=== PATIENT | female | born 1945 | race Caucasian/White ===

== ENCOUNTER 2017-06-25 11:56 | Outpatient (CLI) | payer MEDICARE, BC, OTHER ==
--- NOTE | 2017-06-25 13:50 | RAD ---
PA AND LATERAL CHEST: INDICATIONS: Shortness of breath. COMPARISON: Prior exam dated 03/18/2014. FINDINGS: Chronic lung changes and mild cardiomegaly are stable. The ACDF plate is unchanged. No air space co nsolidation, pleural effusion, or pneumothorax is evident. Osseous structures are similar. IMPRESSION: No acute cardiopulmonary abnormality when compared to the prior exam. POS: [facility]
== END 2017-06-25 11:57 | disposition home or self-care (01) ==
LOC: RAD 11:56
PROVIDERS: ATTEND Internal Medicine Cardiovascular Disease
DX: R06.02 Shortness of breath (principal)
CPT/HCPCS: 71046

== ENCOUNTER 2017-08-15 12:36 | Outpatient (CLI) | payer MEDICARE, OTHER | END 2017-08-15 12:37 | disposition home or self-care (01) | LOC: BICMRI 12:36 | PROVIDERS: ATTEND Anesthesiology Pain Medicine | DX: M48.02 Spinal stenosis, cervical region (principal); M47.892 Other spondylosis, cervical region; Z98.1 Arthrodesis status | CPT/HCPCS: 72052; 72141 ==

== ENCOUNTER 2017-09-06 12:06 | Day surgery (SDC) | payer MEDICARE, OTHER ==
[2017-09-05 12:52] VITALS: BMI 29.6
[2017-09-06] MEDS ORDERED: Lidocaine 1% PF 5 ML VIAL ONE (13:00)
[2017-09-06] MEDS ORDERED: PROPOFOL 200 MG/20 ML VIAL ONE (13:00)
[2017-09-06] MEDS ORDERED: Fentanyl 100 MCG/2 ML VIAL ONE (14:42)
--- NOTE | 2017-09-06 15:47 | OP ---
DATE OF PROCEDURE: 09/06/2017 TITLE OF PROCEDURE: Esophagogastroduodenoscopy with dilation and esophageal biopsy. PREPROCEDURE DIAGNOSES: 1. Atypical chest pain. 2. Intermittent solid food dysphagia. 3. History of gastroesophageal reflux disease. POSTPROCEDURE DIAGNOSES: 1. Examination to second portion of duodenum. 2. A 2 cm sliding hiatal hernia identified from 38-40 cm from the incisors. 3. No evidence of esophageal stenosis or stricture. 4. Grossly normal appearing stomach and duodenum. 5. Status post 54 Irish Valdes dilation of the esophagus. PROCEDURE IN DETAIL: Written informed consent was obtained. The patient was brought to the endoscop y suite. Total intravenous anesthesia was provided by Lucila Slaughter CRNA. The patient was placed in the left lateral decubitus position. A bite block was inserted into the mouth. A Pentax video diag nostic gastroscope was introduced into the oral cavity and the esophagus was carefully intubated. Th e gastroscope was advanced under direct visualization to the second portion of the duodenum. Endosco pic findings revealed a 2 cm sliding hiatal hernia. A few small erosions were noted at the Z-line an d biopsies were later obtained for histology. The stomach was entered and carefully examined. This included a retroflexed view of the cardia and fundus. It was unremarkable. The duodenum from the bu lb to the second portion was also examined and appeared normal. Given the patient's history of dysph agia, dilation was performed with a 54-Irish Valdes dilators. Little to no resistance was encounte red and the endoscope was introduced post-dilation to inspect for any post-procedure problems and to obtain biopsies. Biopsies were obtained in the lower esophagus at approximately 38 cm. The stomach and esophagus were then decompressed as the endoscope was completely removed from the patient. She w as transferred to the day stay surgery area for post-procedure monitoring. There were no immediate c omplications. RECOMMENDATIONS: 1. Await biopsy results. 2. Ask the patient to call me in 1 week for biopsy results. 3. Resume previous diet and medications. 4. Continue Dexilant, but change the timing of the medication to 60 mg q.a.m. 5. Add famotidine 40 mg p.o. at bedtime for the next 6 weeks. 6. Follow up with me or my PA in the office in six weeks.
== END 2017-09-06 16:00 | disposition home or self-care (01) ==
LOC: SDC 12:06
PROVIDERS: ATTEND Internal Medicine Gastroenterology
PROC: 0DB38ZX Excision of Lower Esophagus, Via Natural or Artificial Opening Endoscopic, Diagnostic (ICD-10-PCS; principal; 2017-09-06)
PROC: 0DJ08ZZ Inspection of Upper Intestinal Tract, Via Natural or Artificial Opening Endoscopic (ICD-10-PCS; 2017-09-06)
PROC: 0D758DZ Dilation of Esophagus with Intraluminal Device, Via Natural or Artificial Opening Endoscopic (ICD-10-PCS; 2017-09-06)
DX: R13.10 Dysphagia, unspecified (principal); R07.89 Other chest pain; K21.9 Gastro-esophageal reflux disease without esophagitis; K44.9 Diaphragmatic hernia without obstruction or gangrene; I25.10 Atherosclerotic heart disease of native coronary artery without angina pectoris; E78.5 Hyperlipidemia, unspecified; E03.9 Hypothyroidism, unspecified; M19.90 Unspecified osteoarthritis, unspecified site; F41.9 Anxiety disorder, unspecified; F32.9 Major depressive disorder, single episode, unspecified; Z79.82 Long term (current) use of aspirin; Z79.02 Long term (current) use of antithrombotics/antiplatelets; Z79.899 Other long term (current) drug therapy; Z88.8 Allergy status to other drugs, medicaments and biological substances; Z88.6 Allergy status to analgesic agent; Z88.5 Allergy status to narcotic agent
CPT/HCPCS: 88305; 88312; 88313; J2001; J2704; J3010

== ENCOUNTER 2017-12-14 13:15 | Inpatient (IN) | payer MEDICARE, OTHER ==
[2017-12-14 13:56] VITALS: BMI 29.9
[2017-12-19] MEDS ORDERED: CEFAZOLIN/Water 2 GM/20 ML SYRINGE ONE (06:20)
[2017-12-19] MEDS ORDERED: Sodium Chloride 0.9% 10 ML ONE (06:24)
[2017-12-19] MEDS ORDERED: Fentanyl 100 MCG/2 ML VIAL ONE ×2 (06:52→09:05)
--- NOTE | 2017-12-19 08:36 | OP ---
DATE OF PROCEDURE: 12/19/2017 SURGEON: Evan Alegre M.D. RN CARDIAC CATH: Linn Hobson PROCEDURE: Removal of hardware C5-C7, exploration of spinal fusion C5-C7, anterior cervical discecto my C4-5, interbody arthrodesis, intravertebral biomechanical device, local morselized autograft, carole neralized bone matrix, anterior titanium instrumentation C4-5. PROCEDURE IN DETAIL: The patient was brought to the operating room and intubated. She was positione d supine, head in modest extension on a gel-filled donut. The previous incision was reopened and the prior plate was identified. This was removed without difficulty. We next placed distraction across C4-5 and using the operating microscope and microdissection techniques, completely removed the intra vertebral disc and decompressed the spinal cord down to the level of the dura at C4-5. Next, the bon y endplates were decorticated for the purpose of arthrodesis and appropriately sized intravertebral b iomechanical PEEK device was brought into the field, filled with demineralized bone matrix, local mor selized autograft, and tapped into place securely at C4-5. The C5-C7 level was explored and found to be solidly fused. We next placed an anterior plate at C4 and C5 using two 14 mm screws at each leve l. The wound was then extensively irrigated, immaculate hemostasis was secured. The wound was close d in anatomic layers.
[2017-12-19] MEDS ORDERED: Meperidine HCl/PF 25 MG/ML VIAL SLOW IVP PRN (09:59)
[2017-12-19] MEDS ORDERED: HYDROmorphone 2 MG/ML VIAL SLOW IVP PRN (09:59)
[2017-12-19] MEDS ORDERED: diphenhydrAMINE 25 MG CAP PO PRN (10:24)
[2017-12-19] MEDS ORDERED: diphenhydrAMINE 50 MG/ML VIAL IVP PRN (10:24)
[2017-12-19] MEDS ORDERED: Bisacodyl 10 MG SUPP PR PRN (10:24)
[2017-12-19] MEDS ORDERED: tiZANidine HCl 4 MG TAB PO PRN (10:24)
[2017-12-19] MEDS ORDERED: Milk Of Magnesia 30 ML UDCUP PO PRN (10:24)
[2017-12-19] MEDS ORDERED: HYDROcodone/Acetaminophen 10/325 mg Tablet PO PRN ×2 (10:24)
[2017-12-19] MEDS ORDERED: Ondansetron HCl/PF 4 MG/2 ML Vial IVP PRN (10:24)
[2017-12-19] MEDS ORDERED: traMADol HCl 50 MG TAB PO PRN ×2 (10:24)
[2017-12-19] MEDS ORDERED: Mag-Al 1200 mg/1200 mg/30 ML UDCUP PO PRN (10:24)
[2017-12-19] MEDS ORDERED: Cyclobenzaprine 10 MG TAB PO PRN (10:29)
[2017-12-19] MEDS ORDERED: Diazepam 5 MG TAB PO PRN (10:30)
[2017-12-19] MEDS: Morphine 4 MG/ML VIAL IV PRN ×2 (10:32→13:51)
[2017-12-19] MEDS ORDERED: Nitroglycerin 0.4 MG TAB (25 Tab Bottle) SL PRN (10:36)
[2017-12-19] MEDS ORDERED: Rosuvastatin 5 MG TAB PO SCH (10:45)
[2017-12-19] MEDS ORDERED: Acetaminophen/Codeine 30-300mg Tablet PO PRN (12:15)
[2017-12-19] MEDS: Acetaminophen/Codeine 30-300mg Tablet PO PRN ×2 (12:27→20:05)
[2017-12-19] MEDS: Sodium Chloride 0.9% 1,000 ML IV SCH (12:46)
[2017-12-19] MEDS: CEFAZOLIN/Water 2 GM/20 ML SYRINGE SLOW IVP SCH ×2 (13:51→22:59)
[2017-12-19] MEDS ORDERED: Ketorolac Tromethamine 30 MG/ML VIAL ONE (14:45)
[2017-12-19] MEDS ORDERED: Dexamethasone 20 MG/5 ML VIAL ONE (14:45)
[2017-12-19] MEDS ORDERED: PROPOFOL 200 MG/20 ML VIAL ONE (14:45)
[2017-12-19] MEDS ORDERED: Ondansetron HCl/PF 4 MG/2 ML Vial ONE (14:45)
[2017-12-19] MEDS ORDERED: Lidocaine 1% PF 5 ML VIAL ONE (14:45)
[2017-12-19] MEDS ORDERED: Glycopyrrolate 0.2 MG/ML 5 ML SYRINGE ONE (14:45)
[2017-12-19] MEDS ORDERED: Calcium Carbonate + Vit D 1 TAB PO SCH (21:00)
[2017-12-19] MEDS ORDERED: Temazepam 15 MG CAP PO SCH (21:00)
[2017-12-19] MEDS ORDERED: Ursodiol 300 MG CAP PO SCH (21:00)
[2017-12-19] MEDS ORDERED: rOPINIRole HCl 2 MG TAB PO SCH (21:00)
[2017-12-19] MEDS ORDERED: Ezetimibe 10 MG TAB PO SCH (21:00)
[2017-12-19] MEDS ORDERED: Gabapentin 300 MG CAP PO SCH (21:00)
[2017-12-19] MEDS ORDERED: Famotidine 20 MG TAB PO SCH (21:00)
--- NOTE | 2017-12-19 23:57 | CON ---
DATE OF CONSULTATION: 12/19/2017 CHIEF COMPLAINT: Cervical myelopathy with difficulty walking and left lower extremity weakness. HISTORY OF PRESENT ILLNESS: The patient is a 72-year-old female who had noted to Dr. Ya months ago that there was progressive difficulty with walking and upper extremity weakness to mainly her hands. This progressed such that an MRI was ordered and it showed severe cervical stenosis at C4-C5. Dr. Alegre was consulted to take care of this and he performed removal of hardware at C5-C6, exploration of spinal fusion C5-C7, anterior cervical diskectomy at C4-C5, interbody arthrodesis, intervertebral biomechanical device , autograft and demineralized bone matrix with anterior titanium instrumentation at C4-C5. Dr. Ya was consulted to take care of any other medical issues. PAST MEDICAL HISTORY: Coronary artery disease that was cleared by Dr. Rashmi Multani, GERD, hypertension, hypothyroidism, dyslipidemia, degenerative joint disease, irritable bowel syndrome, restless leg syndrome, and insomnia. PAST SURGICAL HISTORY: The patient's prior surgeries include previous treatment of cervical stenosis, lumbar disk disease, coronary artery stent placement, hysterectomy. ALLERGIES: OXYCODONE, which makes her jumpy; PROMETHAZINE, which makes her disoriented. SOCIAL HISTORY: She is , denies smoking and drinking. MEDICATIONS: On admission includes a daily aspirin 325 mg, Celebrex 400 mg daily, q.day, Plavix 75 mg daily, Flexeril 10 mg t.i.d. p.r.n. muscle spasms, Dexilant 60 mg daily, diltiazem 180 mg at bedtime, Zetia 10 mg at bedtime, gabapentin 600 mg q.a.m. with 1500 mg at bedtime, occasional hydrocodone barbiturate 30 mg daily, imipramine 10 mg at bedtime, Imdur 30 mg q.a.m., levothyroxine 125 mcg daily, Linzess 145 mcg daily, ropinirole 2 mg one to two tabs at bedtime, temazepam 15 mg at bedtime, Actigall 300 mg p.o. q.p.m. with Crestor 5 mg at bedtime. PHYSICAL EXAMINATION: VITAL SIGNS: Blood pressure 137-175 systolic, diastolic 72-75. Temperature 97.7, pulse rate 74, O2 sat at 94% on room air with respirations at 20. She weighs 164 pounds. GENERAL: This is a well-developed, well-nourished, elderly, female, alert, oriented, and cooperative. HEENT: Normocephalic and atraumatic. Pupils equal, round, and reactive to light with arcus senilis bilaterally. TMs, nares, pharynx are clear. NECK: With bandage in place at the base on the right side with already noted. Limited range of motion, but pain free range of motion. No visible swelling or bruising noted. CHEST: Clear to auscultation. HEART: Regular rate and rhythm without murmur. BREAST: Deferred. ABDOMEN: Soft, nontender, without organomegaly. GENITOURINARY: Deferred. EXTREMITIES: Without clubbing, cyanosis, or edema. Muscular wasting noted in the upper extremities with diminished counseling services manager strength. SKIN: Without rashes or lesions. Normal turgor. NEUROLOGIC: Cranial nerves are intact. Sensory exam is grossly intact. Gait and cerebellar function were noted to be normal. Deep tendon reflexes were not tested. ASSESSMENT: 1. Cervical stenosis, postoperative day #1. 2. Hypertension. 3. Hypothyroidism. 4. Hyperlipidemia. 5. History of coronary artery disease status post stent. 6. Gastroesophageal reflux disease. PLAN: Plan will be to follow the patient medically maintaining her hypertensive medication. Her pain control is excellent at this time. We will serially reevaluate her until discharge. SAMD
[2017-12-20] MEDS: Sodium Chloride 0.9% 1,000 ML IV SCH (00:26)
[2017-12-20] MEDS ORDERED: Levothyroxine Sodium 125 MCG TAB PO SCH (06:00)
--- NOTE | 2017-12-20 07:41 | DIS ---
ATTENDING PHYSICIAN: Dr. Evan Alegre DATE OF ADMISSION: 12/18/2017 DATE OF DISCHARGE: 12/20/2017 DISCHARGE SUMMARY: The patient is a 72-year-old female known to us for prior C5-C7 ACDF wh o underwent removal of hardware and extension of cervical fusion to C4-C5. Postoperatively the patie nt has done very well. Her pain is controlled well with p.o. medication, she is tolerating regular d iet, and she is voiding appropriately. She does complain of some mild dysphagia, but this is improve d with Cepacol lozenges and a soft diet. She is not having any airway difficulty. She is ambulatory throughout the department without any difficulty. She is sitting in the bed comfortably in no acute distress. Dressing is dry, incision is soft. She has 5/5 strength throughout. No focal motor weakness, no reflex asymmetry. We will plan to dismiss the patient to home. We will follow up with the patient in 2 weeks. I have discussed home care precautions. Pain management is currently providing her pain medicine prescripti ons. I have added Zanaflex as a muscle relaxer. Please reach out to Neurosurgery for additional que stions or concerns.
[2017-12-20 08:17] VITALS: BP 154/78; TEMP 97.8
[2017-12-20] MEDS ORDERED: Gabapentin 300 MG CAP PO SCH (09:00)
[2017-12-20] MEDS ORDERED: HYDROCODONE PO SCH (09:00)
[2017-12-20] MEDS ORDERED: Ubidecarenone 50 MG CAP PO SCH (09:00)
[2017-12-20] MEDS ORDERED: LINZESS 145 MCG PO SCH (09:00)
== END 2017-12-20 12:18 | disposition home or self-care (01) | DRG 473 ==
LOC: SURG A 12-19 05:56 → SJJU 12-19 09:10 → EDSTATUS 12-19 13:15
PROVIDERS: ADMIT Neurological Surgery; ATTEND Neurological Surgery
PROC: 0RB30ZZ Excision of Cervical Vertebral Disc, Open Approach (ICD-10-PCS; principal; 2017-12-19)
PROC: 0RG10A0 Fusion of Cervical Vertebral Joint with Interbody Fusion Device, Anterior Approach, Anterior Column, Open Approach (ICD-10-PCS; 2017-12-19)
PROC: 0RP10AZ Removal of Interbody Fusion Device from Cervical Vertebral Joint, Open Approach (ICD-10-PCS; 2017-12-19)
DX: M47.12 Other spondylosis with myelopathy, cervical region (principal); I25.10 Atherosclerotic heart disease of native coronary artery without angina pectoris; K21.9 Gastro-esophageal reflux disease without esophagitis; I10 Essential (primary) hypertension; E03.9 Hypothyroidism, unspecified; E78.5 Hyperlipidemia, unspecified; G25.81 Restless legs syndrome
CPT/HCPCS: 76001; A4216; C1713; C1776; G8978-GP-CK; G8979-GP-CK; G8980-GP-CK; J0131; J1100; J1885; J2001; J2270; J2405; J2704; J3010; J3490

== ENCOUNTER 2017-12-14 13:29 | Outpatient (CLI) | payer MEDICARE, OTHER ==
[2017-12-14 14:26] LABS: Mean Corpuscular HGB CONC 32.8 g/dL (32.0-36.0); Mean Corpuscular Hemoglobin 28.8 pg (27.0-31.0); Mean Corpuscular Volume 87.8 fL (78.0-98.0); Mean Platelet Volume 5.8 fL (7.4-10.4); Platelet Count 369 thou/uL (130-400); RBC Distribution Width 13.3 % (11.5-14.5); Red Blood Cell (RBC) Count 3.82 mill/uL (4.20-5.40); White Blood Cell (WBC) Count 7.3 thou/uL (4.8-10.8)
[2017-12-14 14:47] LABS: Anion Gap 9 mmol/L (10-20); BUN (Urea Nitrogen) 12 mg/dL (9.8-20.1); Calc. Creatinine Clearance 0 mL/min (70-130); Calcium 9.3 mg/dL (7.8-10.44); Carbon Dioxide 28 mmol/L (23-31); Chloride 107 mmol/L (98-107); Estimated GFR-MDRD 66; Glucose 79 mg/dL (83-110); Potassium 4.1 mmol/L (3.5-5.1); Sodium 140 mmol/L (136-145)
== END 2017-12-14 13:30 | disposition home or self-care (01) ==
LOC: LABBT 13:29
PROVIDERS: ATTEND Neurological Surgery
DX: Z01.818 Encounter for other preprocedural examination (principal); M47.12 Other spondylosis with myelopathy, cervical region
CPT/HCPCS: 80048; 85027; 93005; 93010

== ENCOUNTER 2018-01-01 13:02 | Inpatient (IN) | payer MEDICARE, OTHER ==
[2018-01-01] MEDS ORDERED: Acetaminophen 500 MG TAB ONE (13:26)
[2018-01-01 13:33] LABS: #Basophils 0.1 thou/uL (0.0-0.2); #Lymphocytes 2.1 thou/uL (1.20-3.40); #Monocytes 1.3 thou/uL (0.11-0.59); #Neutrophils 11.2 thou/uL (1.40-6.50); %Basophils 0.7 % (0.0-1.0); %Eosinophils 0.3 % (0.0-10.0); %Lymphocytes 14.3 % (21.0-51.0); %Monocytes 8.5 % (0.0-10.0); %Neutrophils 76.3 % (42.0-75.0); Hemoglobin 10.9 g/dL (12.0-16.0); Mean Corpuscular HGB CONC 33.2 g/dL (32.0-36.0); Mean Corpuscular Hemoglobin 28.7 pg (27.0-31.0); Mean Corpuscular Volume 86.4 fL (78.0-98.0); Mean Platelet Volume 5.6 fL (7.4-10.4); Platelet Count 468 thou/uL (130-400); RBC Distribution Width 13.7 % (11.5-14.5); Red Blood Cell (RBC) Count 3.78 mill/uL (4.20-5.40); White Blood Cell (WBC) Count 14.7 thou/uL (4.8-10.8)
[2018-01-01 13:55] LABS: ALT (SGPT) 19 U/L (8-55); AST (SGOT) 28 U/L (5-34); Alkaline Phosphatase 136 U/L (40-150); Anion Gap 11 mmol/L (10-20); BUN (Urea Nitrogen) 11 mg/dL (9.8-20.1); Bilirubin, Total 0.6 mg/dL (0.2-1.2); Calc. Creatinine Clearance 0 mL/min (70-130); Calcium 9.3 mg/dL (7.8-10.44); Carbon Dioxide 26 mmol/L (23-31); Chloride 102 mmol/L (98-107); Estimated GFR-MDRD 65; Globulin 3.4 g/dL (2.4-3.5); Glucose 113 mg/dL (83-110); Potassium 3.6 mmol/L (3.5-5.1); Protein, Total 7.4 g/dL (6.0-8.3); Sodium 135 mmol/L (136-145)
--- NOTE | 2018-01-01 13:59 | RAD ---
PORTABLE AP CHEST RADIOGRAPH: Date: 01-01-18 History: Chest pain, headache. Comparison: 06-25-17 FINDINGS: There is a parenchymal opacity present at the left lung base which may represent small left pleural e ffusion and atelectasis although pneumonia is a possibility. The right lung is clear. Cardiac silhoue tte is magnified by projection. Pulmonary vasculature is within normal limits. Post-surgical changes in the lower cervical spine are again seen. IMPRESSION: 1. Pleural and parenchymal changes left lung base suggesting a left pleural effusion and atelectasis, but pneumonia at the left lung base is also a possibility. Follow up to complete resolution is recom mended. POS: [facility]
[2018-01-01 14:00] LABS: CKMB 2.2 ng/mL (0-6.6)
[2018-01-01 14:05] LABS: Troponin I 5.457 ng/mL (< 0.028)
[2018-01-01 14:09] LABS: Bilirubin Negative (Negative); Blood, Urine Negative (Negative); Clarity CLEAR (Clear); Glucose, Urine (Dipstick) Negative (Negative); Leukocyte Negative (Negative); Nitrite Negative (Negative); Protein, Urine (Dipstick) Negative (Neg-Trace); Specific Gravity, Urine 1.005 (1.002-1.036); Urobilinogen 0.2 mg/dL (0.2-1.0)
[2018-01-01] MEDS ORDERED: Aspirin 325 MG TAB ONE (14:12)
[2018-01-01] MEDS ORDERED: Nitroglycerin 2% Ointment 1 INCH/1 GM Packet ONE (15:42)
[2018-01-01] MEDS ORDERED: Nitroglycerin 0.4 MG TAB (25 Tab Bottle) ONE (15:42)
[2018-01-01] MEDS ORDERED: Metoprolol Tartrate 5 MG/5 ML VIAL ONE (15:53)
[2018-01-01] MEDS ORDERED: Enoxaparin Sodium 80 MG/0.8 ML SYRINGE ONE ×2 (16:28→16:29)
[2018-01-01] MEDS ORDERED: Metoprolol Tartrate 25 MG TAB PO SCH (16:45)
[2018-01-01 17:03] LABS: INR-International Normal Ratio 1.1; Prothrombin Time 14.2 SEC (12.0-14.7)
[2018-01-01 17:04] LABS: PTT 37.4 SEC (22.9-36.1)
[2018-01-01 17:38] VITALS: BMI 30.2
--- NOTE | 2018-01-01 17:42 | CON ---
DATE OF CONSULT: 01/01/18 HISTORY OF PRESENT ILLNESS: The patient is a 72-year-old woman who presents with fever, chills, and chest discomfort. The patient has a long history of coronary artery disease. She has undergone PTCA and stent placed in the left anterior descending artery. The patient underwent a repeat cardiac cath eterization in 2013, which revealed a patent stent. The patient was scheduled to undergo neck surger y. The patient underwent a preoperative PET scan which revealed no evidence of significant ischemia. The patient has been off her Plavix and aspirin for chronic antiplatelet medication. Yesterday celeste qian, the patient developed fevers and chills. She also noted having midsternal chest discomfort. T his was a persistent discomfort. The patient eventually came to the emergency room for further evalu ation. The patient reports that her chest pain has improved, but still is present. PAST MEDICAL HISTORY: Significant for, 1. Coronary artery disease. 2. Hypertension. 3. Dyslipidemia: PAST SURGICAL HISTORY: Cervical stenosis surgery, hysterectomy, cholecystectomy, aortic scar. ALLERGIES: She is allergic to OXYCODONE, PROMETHAZINE. SOCIAL HISTORY: Nonsmoker. MEDICATIONS: See nursing list. REVIEW OF SYSTEMS: Noticeable for fevers, chills, nonproductive cough. PHYSICAL EXAMINATION: GENERAL: Well-developed woman in mild distress. VITAL SIGNS: Blood pressure 132/70. NECK: Showed no jugular distention. LUNGS: Crackles in both lower bases. HEART: Regular rate and rhythm, normal S1, S2, no murmurs. ABDOMEN: Nondistended. EXTREMITIES: Showed no edema. SKIN: Warm and dry. NEUROLOGIC: Nonfocal. LABORATORY DATA: White blood cell count 14.7, hemoglobin 10.9 by a 32.7, platelets are 468. Sodium was 135, potassium 3.6, chloride 102, bicarbonate 26, BUN 11, creatinine 0.86, glucose 113. CPK MB w as 2.2. Troponin was 5.4. White blood cell count 14.7, hemoglobin 10.9, hematocrit 32.7, platelets are 468. Her EKG revealed normal sinus rhythm with an RSR prime suggestive of right ventricular cond uction delay. Chest x-ray revealed cardiomegaly with a small pleural effusion. IMPRESSION: 1. Sepsis. 2. Non-Q-wave myocardial infarction. 3. Hypertension. 4. Diabetes mellitus. 5. Dyslipidemia. This patient presents with possible sepsis. She has apparently has suffered a small non-Q-wave myoca rdial infarction. The patient has been off her antiplatelet medication for several weeks. From a ca rdiac standpoint, she will be treated with local IV Lopressor, nitroglycerin and aspirin. The patien t will also be treated with Lovenox. We will follow this patient with you through her hospitalizatio n.
[2018-01-01] MEDS ORDERED: Acetaminophen 325 MG TAB PO PRN (18:17)
[2018-01-01] MEDS ORDERED: Ondansetron HCl/PF 4 MG/2 ML Vial SLOW IVP PRN (18:28)
[2018-01-01] MEDS ORDERED: Nitroglycerin 0.4 MG TAB (25 Tab Bottle) SL PRN (18:30)
[2018-01-01] MEDS ORDERED: Prevnar 13-Val Conj/PF 0.5 ML SYRINGE IM ONE (19:00)
[2018-01-01] MEDS: Dextrose 5 %-0.45 % NaCl 1,000 ML IV SCH (19:32)
[2018-01-01 19:59] LABS: Critical Call Chem Troponin I RESULT DECREASING
[2018-01-01] MEDS: rOPINIRole HCl 1 MG TAB PO SCH (20:34)
[2018-01-01] MEDS: Metoprolol Tartrate 25 MG TAB PO SCH (20:34)
[2018-01-01] MEDS: Nitroglycerin 2% Ointment 1 INCH/1 GM Packet TOP SCH (20:34)
[2018-01-01] MEDS: Temazepam 15 MG CAP PO SCH (20:34)
[2018-01-01] MEDS: Piperacillin/Tazobactam 4.5 GM in Sodium Chloride 0.9% 100 ML IVPB SCH (21:18)
[2018-01-01] MEDS: Rosuvastatin 5 MG TAB PO SCH (21:19)
--- NOTE | 2018-01-01 22:09 | HP ---
DATE OF ADMISSION: 01/01/2018 CHIEF COMPLAINT: Non-STEMI, pneumonia, and sepsis. HISTORY OF PRESENT ILLNESS: Patient is a 72-year-old female who 13 days ago underwent removal of frandy dware at C5-C7 with spinal fusion of C5-C7 and anterior titanium instrumentation of C4, C5. The ying ent had an unremarkable postoperative course. She states, however, last night she began to have subs ternal chest pain up to a level of 8 or 9/10. She did not tell anyone until the morning of admission . During this time, she felt short-winded. She denies nausea or radiation of pain. She did have a pain with deep inspiration as well. Her temperature went up to 102.9. Her on realizing this brought her to the emergency room for further evaluation. In the ER, her troponin was noted to be 5 .457. Her white count was noted to be elevated at 14,700 with a left shift and on chest x-ray, there was suggestion of left lower lobe pneumonia. The patient has been seen by Dr. Bradshaw and if her c hest pain becomes intractable, we will probably go to the laboratory assistant; however, currently she is pain fr ee and has been placed in IMCU for further evaluation and continuance of IV antibiotics. PAST MEDICAL HISTORY: Significant for the aforementioned recent neck surgery, coronary artery diseas e, GERD, hypertension, hypothyroidism, dyslipidemia, degenerative joint disease, irritable bowel synd rick, restless leg syndrome, and insomnia. PAST SURGICAL HISTORY: Includes cervical stenosis, lumbar disk disease, coronary artery disease with stent placement, hysterectomy, and then the previously mentioned cervical fusion performed on 2017 at [facility]. ALLERGIES: OXYCODONE and PROMETHAZINE. SOCIAL HISTORY: She is , does not smoke or drink alcoholic beverages. MEDICATIONS ON ADMISSION: Include aspirin 325 daily, Celebrex 400 mg daily, Plavix 75 mg daily, Flex eril 10 mg p.r.n. muscle spasms, Dexilant 60 mg daily, diltiazem 180 mg daily, Zetia 10 mg at bedtime , gabapentin 300 mg in the morning and 600 mg at bedtime, Requip 1 mg at bedtime, Valium 5 mg p.r.n. muscle spasms, Imdur 30 mg 1 p.o. daily, Actigall 300 mg once a day, Tylenol No.3 p.r.n. pain, Synthr oid 125 mcg daily. REVIEW OF SYSTEMS: Constitutional: She reports chills and fever, generalized weakness. Temperature over 102. Eyes, denies blurred vision, discharge, or pain. EENT: Denies sores discharge or pain. Cardiovascular has had chest pain substernally at level of 8/10, it is on the left side of the chest , it did not radiate. She was dyspneic and pain with inspiration. Denies nausea, diaphoresis. Resp iratory: Pain with deep inspiration. Denies cough or dyspnea. GI: Denies nausea, vomiting, diarrh ea. : Denies painful urination, blood in urine, or stool. Musculoskeletal: Has a tender somewha t stiff neck since her surgery, otherwise unremarkable. Skin: No acute rashes or lesions. Neurolog ically: She has a headache; otherwise, has not had any trouble with mentation, paresthesias, anesthe kelsie. PHYSICAL EXAMINATION: VITAL SIGNS: On admission, blood pressure 143/68, pulse 109, respirations 22, temperature night 102. 8 tympanic. Pain 8/10 on arrival. O2 sat 96% on room air. GENERAL: This is a well-developed, well-nourished elderly female, alert, oriented, and cooperative. HEENT: Normocephalic and atraumatic. Pupils equal, round, reactive to light with arcus senilis bila terally. TMs, nares, pharynx are clear. NECK: With bandage in place, clean and dry. LUNGS: Incision appears to be healing well with limited range of motion at this time. Chest with bi basilar rales noted on exam. HEART: Regular rate and rhythm. Breast exam deferred. ABDOMEN: Soft, nontender without organomegaly. GENITOURINARY: Deferred. EXTREMITIES: Without clubbing, cyanosis, or edema. Symmetrical muscular tone development noted. No rmal range of motion present. SKIN: No acute rashes or lesions. NEUROLOGIC: Cranial nerves are intact. Gait and cerebellar function intact. Sensory exam is intact . Mental status is at baseline. SKIN: No acute rashes or lesions. LABORATORY DATA: Lab work on admission, chest x-ray shows a suggestion of left lower lobe infiltrate . WBC 14.7, hemoglobin 10.9, hematocrit 32.7 with 468,000 platelets with a left shift. Sodium 135, potassium 3.6, chloride 102, CO2 of 26, BUN 11, creatinine 0.86 with a GFR of 65. Lactate is 0.9, ca lcium 9.3. Liver functions normal. Troponin I initially 5.457 at 1300 and 1600 did come down to 4.6 . UA is completely unremarkable. PT is 14.2, INR 1.1 with APTT at 37.4. ASSESSMENT: 1. Non-ST elevation myocardial infarction. 2. Bilateral lobe pneumonia. 3. Sepsis. 4. Status post surgical fusion, postoperative day 13. PLAN: Plan will be to continue monitoring cardiac functions on tele. Dr. Bradshaw has been consulte d from a cardiac standpoint, we will continue to follow the patient. Echocardiogram will be ordered. Pain management provided. Continue IV antibiotics and should the patient in depth with intractable pain, then prepared for going to the laboratory assistant. Currently, she is medically stable and doing well an d will be serially reevaluated as well as started back on aspirin and Lovenox.
[2018-01-02] MEDS: Cyclobenzaprine 10 MG TAB PO PRN ×2 (01:01→09:20)
[2018-01-02] MEDS: Piperacillin/Tazobactam 4.5 GM in Sodium Chloride 0.9% 100 ML IVPB SCH ×4 (04:18→21:21)
[2018-01-02 05:40] LABS: #Basophils 0.1 thou/uL (0.0-0.2); #Eosinphils 0.1 thou/uL (0.0-0.7); #Lymphocytes 1.7 thou/uL (1.20-3.40); #Monocytes 0.9 thou/uL (0.11-0.59); #Neutrophils 10.2 thou/uL (1.40-6.50); %Basophils 0.7 % (0.0-1.0); %Eosinophils 0.5 % (0.0-10.0); %Lymphocytes 12.9 % (21.0-51.0); %Monocytes 6.8 % (0.0-10.0); %Neutrophils 79.1 % (42.0-75.0); Mean Corpuscular HGB CONC 33.2 g/dL (32.0-36.0); Mean Corpuscular Hemoglobin 29.3 pg (27.0-31.0); Mean Corpuscular Volume 88.1 fL (78.0-98.0); Mean Platelet Volume 6.1 fL (7.4-10.4); Platelet Count 416 thou/uL (130-400); RBC Distribution Width 13.8 % (11.5-14.5); Red Blood Cell (RBC) Count 3.76 mill/uL (4.20-5.40); White Blood Cell (WBC) Count 12.9 thou/uL (4.8-10.8)
[2018-01-02] MEDS: Levothyroxine Sodium 125 MCG TAB PO SCH (05:47)
[2018-01-02 06:00] LABS: Anion Gap 13 mmol/L (10-20); BUN (Urea Nitrogen) 8 mg/dL (9.8-20.1); Calc. Creatinine Clearance 80 mL/min (70-130); Calcium 9.2 mg/dL (7.8-10.44); Carbon Dioxide 20 mmol/L (23-31); Chloride 108 mmol/L (98-107); Estimated GFR-MDRD 75; Glucose 112 mg/dL (83-110); Potassium 3.3 mmol/L (3.5-5.1); Sodium 138 mmol/L (136-145)
[2018-01-02] MEDS ORDERED: Clopidogrel Bisulfate 75 MG TAB PO SCH (07:01)
[2018-01-02] MEDS ORDERED: Dextrose 5 %-0.45 % NaCl 1,000 ML IV SCH (07:02)
[2018-01-02] MEDS ORDERED: Potassium Chloride 20 MEQ TAB PO SCH ×2 (07:15→17:00)
[2018-01-02] MEDS: Dextrose 5 %-0.45 % NaCl 1,000 ML IV SCH (07:21)
--- NOTE | 2018-01-02 07:23 | PRG ---
DATE OF SERVICE: 01/02/2018 Ms. Blanc feels weak and fatigued this morning. She has central chest pain with a deep breath. She has no anginal chest pain today. The patient reports she has been having high fevers for several days now, 103 fever at home, 103 feve r yesterday in the emergency room with shaking chills. She is having no anginal chest pain. PHYSICAL EXAMINATION: VITAL SIGNS: Blood pressure 165/77, pulse 94. LUNGS: Clear anteriorly. Posteriorly, I hear rales in the left base. CARDIAC: Normal S1, normal S2. ABDOMEN: Soft, nontender. EXTREMITIES: There is no edema. ASSESSMENT: 1. Recent cervical spine surgery 2 weeks ago. 2. Coronary artery disease with previous stent implantation. 3. Recent negative stress test. 4. Elevation in troponin. I suspect this is related to demand ischemia or related to side branch. PLAN: 1. We will start low dose Plavix, may talk to Neurosurgery see if it is okay to resume full dual ant iplatelet drugs. 2. Continue antibiotics. 3. Continue aspirin. 4. Consideration for CT of the chest to further delineate whether she does indeed have pneumonia and if so, to what degree. 5. We will continue to follow with you.
--- NOTE | 2018-01-02 08:07 | RAD ---
PORTABLE CHEST: HISTORY: Chest pain. COMPARISON: Prior day's exam. FINDINGS: Heart size is borderline slightly enlarged with atherosclerotic changes of the aorta. Some persisten t pleural and parenchymal changes in the left lung base which may be slightly improved as compared to the prior exam. Subsegmental atelectasis is seen in the right lower lobe. IMPRESSION: Suggestion that there may be slight improvement to the left-sided pleural changes. Persistent bibasi lar lung changes probably on the basis of atelectasis versus infiltrate. POS: [facility]
[2018-01-02] MEDS ORDERED: Pantoprazole 40 MG VIAL IVP SCH (09:00)
[2018-01-02] MEDS ORDERED: Prevnar 13-Val Conj/PF 0.5 ML SYRINGE IM ONE (09:00)
[2018-01-02] MEDS: Metoprolol Tartrate 25 MG TAB PO SCH ×2 (09:13→21:21)
[2018-01-02] MEDS: Nitroglycerin 2% Ointment 1 INCH/1 GM Packet TOP SCH ×2 (09:14→21:21)
[2018-01-02] MEDS: Clopidogrel Bisulfate 75 MG TAB PO SCH (09:14)
--- NOTE | 2018-01-02 11:00 | CT ---
CT OF CHEST PERFORMED WITHOUT CONTRAST ENHANCEMENT: History: Crackling in both lungs. Shortness of breath. Chest pain. Comparison: Chest x-ray today and previous chest x-ray of 01-01-18. FINDINGS: Heart size appears enlarged. Aorta is normal in caliber. There is some coronary calcification and wha t probably is a stent. No significant mediastinal adenopathy is seen. There are small bilateral pleural effusions which are fairly symmetric. There is some associated biba silar lung changes which are slightly more prominent within the left lower lobe but are probably more on the basis of atelectatic type process. The parenchymal changes are slightly greater in the left b ase. Visualized liver parenchyma shows no focal findings. Right and left adrenal glands are normal. IMPRESSION: Small bilateral pleural effusions with bibasilar lung changes most suggestive of atelectasis. POS: [facility]
[2018-01-02] MEDS: HYDROcodone/Acetaminophen 5/325 mg Tablet PO PRN ×2 (12:03→21:27)
[2018-01-02] MEDS ORDERED: Furosemide 40 MG/4 ML VIAL SLOW IVP SCH (14:00)
--- NOTE | 2018-01-02 15:15 | EKG ---
Test Reason : CHEST PAIN Blood Pressure : / mmHG Vent. Rate : 104 BPM Atrial Rate : 104 BPM P-R Int : 132 ms QRS Dur : 090 ms QT Int : 336 ms P-R-T Axes : 042 082 050 degrees QTc Int : 441 ms Poor data quality, interpretation may be adversely affected Sinus tachycardia RSR' or QR pattern in V1 suggests right ventricular conduction delay Borderline ECG Confirmed by ABDOUL BELLA DO ([id number]), editor magazine BENNIE GIBBS ([id number]) on 01/02/2018 3:14:37 PM Referred By: SIMRAN Confirmed By:ABDOUL BELAL DO
[2018-01-02] MEDS ORDERED: Enoxaparin Sodium 80 MG/0.8 ML SYRINGE SC SCH (17:00)
[2018-01-02] MEDS: Gabapentin 300 MG CAP PO SCH (21:20)
[2018-01-02] MEDS: rOPINIRole HCl 1 MG TAB PO SCH (21:21)
[2018-01-02] MEDS: Rosuvastatin 5 MG TAB PO SCH (21:21)
[2018-01-02] MEDS: Temazepam 15 MG CAP PO SCH (21:21)
[2018-01-03] MEDS: Piperacillin/Tazobactam 4.5 GM in Sodium Chloride 0.9% 100 ML IVPB SCH (03:49)
[2018-01-03] MEDS: Levothyroxine Sodium 125 MCG TAB PO SCH (06:00)
[2018-01-03 07:13] LABS: #Basophils 0.1 thou/uL (0.0-0.2); #Eosinphils 0.2 thou/uL (0.0-0.7); #Lymphocytes 1.6 thou/uL (1.20-3.40); #Monocytes 0.7 thou/uL (0.11-0.59); #Neutrophils 7.6 thou/uL (1.40-6.50); %Basophils 0.6 % (0.0-1.0); %Eosinophils 1.6 % (0.0-10.0); %Lymphocytes 15.5 % (21.0-51.0); %Monocytes 7.1 % (0.0-10.0); %Neutrophils 75.2 % (42.0-75.0); Mean Corpuscular HGB CONC 33.3 g/dL (32.0-36.0); Mean Corpuscular Hemoglobin 29.1 pg (27.0-31.0); Mean Corpuscular Volume 87.5 fL (78.0-98.0); Mean Platelet Volume 5.8 fL (7.4-10.4); Platelet Count 465 thou/uL (130-400); RBC Distribution Width 13.7 % (11.5-14.5); Red Blood Cell (RBC) Count 4.11 mill/uL (4.20-5.40); White Blood Cell (WBC) Count 10.1 thou/uL (4.8-10.8)
[2018-01-03 07:28] LABS: Anion Gap 12 mmol/L (10-20); BUN (Urea Nitrogen) 11 mg/dL (9.8-20.1); Calc. Creatinine Clearance 62 mL/min (70-130); Calcium 9.1 mg/dL (7.8-10.44); Carbon Dioxide 21 mmol/L (23-31); Chloride 109 mmol/L (98-107); Estimated GFR-MDRD 59; Glucose 107 mg/dL (83-110); Sodium 139 mmol/L (136-145)
[2018-01-03 07:35] LABS: Potassium 2.7 mmol/L (3.5-5.1)
[2018-01-03] MEDS: Amoxicillin/Potassium Clav 500 MG TAB PO SCH ×2 (08:43→21:17)
[2018-01-03] MEDS: Potassium Chloride 20 MEQ TAB PO SCH ×2 (08:44→21:18)
[2018-01-03] MEDS: Clopidogrel Bisulfate 75 MG TAB PO SCH (08:46)
[2018-01-03] MEDS: Cyclobenzaprine 10 MG TAB PO PRN ×3 (08:46→22:30)
[2018-01-03] MEDS: Gabapentin 400 MG CAP PO SCH (08:46)
[2018-01-03] MEDS: Metoprolol Tartrate 25 MG TAB PO SCH ×2 (08:47→21:18)
[2018-01-03] MEDS: Nitroglycerin 2% Ointment 1 INCH/1 GM Packet TOP SCH ×2 (08:47→22:16)
[2018-01-03] MEDS: TRAMADOL ER 300 MG PO SCH (09:12)
[2018-01-03] MEDS ORDERED: Communication Order-Pharmacy FS SCH (09:15)
[2018-01-03] MEDS ORDERED: Sodium Chloride 0.9% 1,000 ML IV SCH (09:15)
--- NOTE | 2018-01-03 09:25 | PRG ---
DATE OF SERVICE: 01/03/2018 SUBJECTIVE: Ms. Blanc is feeling much better today. She had 8-liter diuresis yesterday with 40 mg o f Lasix. She is sitting up in the chair, now breathing easily. PHYSICAL EXAMINATION: VITAL SIGNS: Her blood pressure is 119/56, pulse 78. LUNGS: Still a few rales at the base on the left side. CARDIAC: Normal S1, normal S2. There is no murmur, rub or gallop. ABDOMEN: Soft, nontender. EXTREMITIES: Only mild edema. IMAGING DATA: Echocardiogram showed hypokinesis of the distal anterior wall. ASSESSMENT: 1. Recent surgery. 2. Recent fever, resolving seems to be pulmonary in origin. The fever had now has resolved actually , probably had pneumonia. 3. Episode of congestive heart failure, diastolic, by definition with ejection fraction over 50%, bu t she has a wall motion abnormality. 4. Previous stent implantation. PLAN: 1. One more dose of Lasix. 2. Proceed to cardiac catheterization tomorrow. I discussed risks of stroke, heart attack, IODINE a llergy, loss of blood supply to leg or kidney, stent thrombosis, stent restenosis. She understands a nd wishes to proceed. 3. Replete potassium.
[2018-01-03] MEDS ORDERED: Furosemide 40 MG/4 ML VIAL SLOW IVP SCH (09:45)
[2018-01-03] MEDS ORDERED: Potassium Chloride 20 MEQ TAB PO SCH (12:00)
[2018-01-03] MEDS: HYDROcodone/Acetaminophen 5/325 mg Tablet PO PRN (15:37)
[2018-01-03] MEDS: Gabapentin 300 MG CAP PO SCH (21:18)
[2018-01-03] MEDS: Rosuvastatin 5 MG TAB PO SCH (21:18)
[2018-01-03] MEDS: rOPINIRole HCl 1 MG TAB PO SCH (22:16)
[2018-01-03] MEDS: Temazepam 15 MG CAP PO SCH (22:17)
[2018-01-04] MEDS: Levothyroxine Sodium 125 MCG TAB PO SCH (05:29)
[2018-01-04] MEDS: Metoprolol Tartrate 25 MG TAB PO SCH (05:30)
[2018-01-04] MEDS: Gabapentin 400 MG CAP PO SCH (05:30)
[2018-01-04] MEDS: Clopidogrel Bisulfate 75 MG TAB PO SCH (05:30)
[2018-01-04] MEDS ORDERED: Sodium Chloride 0.9% 1,000 ML IV SCH ×2 (06:00→07:59)
[2018-01-04 06:21] LABS: Anion Gap 11 mmol/L (10-20); BUN (Urea Nitrogen) 23 mg/dL (9.8-20.1); Calc. Creatinine Clearance 60 mL/min (70-130); Carbon Dioxide 24 mmol/L (23-31); Chloride 110 mmol/L (98-107); Estimated GFR-MDRD 57; Glucose 142 mg/dL (83-110); Potassium 3.4 mmol/L (3.5-5.1); Sodium 142 mmol/L (136-145)
[2018-01-04] MEDS ORDERED: Lidocaine 1% (PF) 30 ML VIAL ONE (06:40)
[2018-01-04] MEDS ORDERED: Midazolam HCl 2 mg/2 ml Vial ONE (07:23)
[2018-01-04] MEDS ORDERED: Fentanyl 100 MCG/2 ML VIAL ONE (07:23)
[2018-01-04] MEDS ORDERED: Sodium Chloride 0.9% 200 ML IV PRN (08:00)
[2018-01-04] MEDS ORDERED: Nitroglycerin 0.4 MG TAB (25 Tab Bottle) SL PRN (08:00)
[2018-01-04] MEDS ORDERED: Iopamidol 370 76% 100 ML VIAL ONE (08:17)
--- NOTE | 2018-01-04 09:24 | PRG ---
DATE OF SERVICE: 01/04/2018 Ms. Blanc underwent cardiac catheterization today. Her coronaries were found to have no obstructive stenosis. The LAD stent is still widely patent with good flow. No flow limiting disease. ASSESSMENT: 1. Recent surgery. 2. Stent widely patent. 3. Non-ST elevation infarction, probably demand ischemia. 4. Fever, resolved, probably pulmonary in origin. 5. Episode of congestive heart failure, diastolic with ejection fraction 55%. PLAN: 1. She will go on Spironolactone 25 mg a day. 2. Metoprolol 25 mg a day. 3. Aspirin. 4. Plavix will be resumed. 5. Avoid LISSY inhibitors at this time being on spironolactone with normal ejection fraction. Risk be nefit ratio does not favor LISSY inhibitors with this situation.
[2018-01-04] MEDS: TRAMADOL ER 300 MG PO SCH (09:54)
[2018-01-04] MEDS: Potassium Chloride 20 MEQ TAB PO SCH (12:05)
[2018-01-04] MEDS: Amoxicillin/Potassium Clav 500 MG TAB PO SCH (12:15)
[2018-01-04 12:52] VITALS: BP 119/58; TEMP 98
[2018-01-04] MEDS: Nitroglycerin 2% Ointment 1 INCH/1 GM Packet TOP SCH (12:56)
[2018-01-05] MEDS ORDERED: Spironolactone 25 MG TAB PO SCH (08:00)
[2018-01-05] MEDS ORDERED: Lisinopril 2.5 MG TAB PO SCH (09:00)
== END 2018-01-04 15:05 | disposition home or self-care (01) | DRG 871 ==
LOC: ERS 13:02 → IMCU/EMU 16:16 → 2NO 22:40
PROVIDERS: ADMIT Specialist; ATTEND Specialist
PROC: 4A023N7 Measurement of Cardiac Sampling and Pressure, Left Heart, Percutaneous Approach (ICD-10-PCS; principal; 2018-01-04)
PROC: B2111ZZ Fluoroscopy of Multiple Coronary Arteries using Low Osmolar Contrast (ICD-10-PCS; 2018-01-04)
PROC: B2151ZZ Fluoroscopy of Left Heart using Low Osmolar Contrast (ICD-10-PCS; 2018-01-04)
DX: A41.9 Sepsis, unspecified organism (principal); J18.9 Pneumonia, unspecified organism; I50.30 Unspecified diastolic (congestive) heart failure; I24.8 Other forms of acute ischemic heart disease; I25.10 Atherosclerotic heart disease of native coronary artery without angina pectoris; K21.9 Gastro-esophageal reflux disease without esophagitis; E03.9 Hypothyroidism, unspecified; E78.5 Hyperlipidemia, unspecified; I11.0 Hypertensive heart disease with heart failure; M19.90 Unspecified osteoarthritis, unspecified site; K58.9 Irritable bowel syndrome, unspecified; G25.81 Restless legs syndrome; G47.00 Insomnia, unspecified; Z79.82 Long term (current) use of aspirin; Z79.02 Long term (current) use of antithrombotics/antiplatelets; Z95.5 Presence of coronary angioplasty implant and graft
CPT/HCPCS: 36415; 71045; 71250; 76942; 80048; 80053; 81003; 82553; 83605; 83880; 84484; 85025; 85610; 85730; 87040; 90471; 90670; 93005; 93306; 93458; 96361; 96365; 96372; 96375; 99152; A4216; C9113; G0009; J1644; J1650; J1940; J1956; J2001; J2250; J2270; J2543; J3010; J7050

== ENCOUNTER 2018-02-19 13:32 | Outpatient (CLI) | payer MEDICARE, OTHER ==
--- NOTE | 2018-02-19 15:05 | RAD ---
CERVICAL SPINE RADIOGRAPHS THREE VIEWS: Date: 02-19-18 Provided Clinical History: Radiculopathy. FINDINGS: Comparison 01-09-18. Post-operative changes as previously described appear stable. Cervical alignment is unchanged. No vahe dence for fracture. Visualized lung apices appear clear. Degenerative changes are again seen. IMPRESSION: Stable exam. POS: [facility]
== END 2018-02-19 13:33 | disposition home or self-care (01) ==
LOC: TBSIIMAG 13:32
PROVIDERS: ATTEND Neurological Surgery
DX: M50.30 Other cervical disc degeneration, unspecified cervical region (principal)
CPT/HCPCS: 72040

== ENCOUNTER 2018-04-05 15:18 | Outpatient (CLI) | payer MEDICARE, OTHER ==
--- NOTE | 2018-04-05 21:05 | MRI ---
MR OF THE CERVICAL SPINE WITHOUT CONTRAST 04/05/18 INDICATION: History of cervical radicular pain extending into the right shoulder for two months. COMPARISON: Prior MR cervical spine dated 08/15/17 and a cervical spinal radiograph dated 02/19/18. FINDINGS: Since the comparison MR examination, there has been interval revision of the ACDF, now spanning C4-C5 with intervertebral cages persisting at the C5-6 and C6-7 levels. There appears to be solid osseous incorporation of the interbody bone graft at C5-6 and C6-7. The spinal alignment appears within faisal l limits. The visualized posterior fossa is unremarkable appearing. At C2-C3, there is advanced facet joint degenerative change, right greater than left with a mild broa d based bulge inducing mild right neural foraminal narrowing. This is stable to the prior exam. At C3-4, there is uncovertebral hypertrophy and facet joint degenerative change and a broad based dis c bulge inducing severe right neural foraminal narrowing. This is stable to the prior exam. At C4-5, there is some residual broad based disc bulge and ligamentum flavum hypertrophy inducing mod erate central canal narrowing with mild cord compression. The uncovertebral hypertrophy is greater on the left inducing stable moderate to severe left neural foraminal narrowing. At C5-6, there is no appreciable central canal or neural foraminal narrowing. At C6-7, there is no appreciable central canal or neural foraminal narrowing. At C7-T1, there is some facet joint degenerative change, greater on the left inducing mild left neura l foraminal narrowing which is stable to the prior exam. IMPRESSION: 1. Interval revision of the ACDF at C4-5 with some residual moderate central canal narrowing wit h mild cord compression at C4-5. No definite cord signal abnormality is evident. 2. Stable multilevel neural foraminal narrowing as detailed above. POS: [facility]
== END 2018-04-05 15:19 | disposition home or self-care (01) ==
LOC: BICMRI 15:18
PROVIDERS: ATTEND Specialist
DX: M54.12 Radiculopathy, cervical region (principal); M48.02 Spinal stenosis, cervical region; M48.03 Spinal stenosis, cervicothoracic region
CPT/HCPCS: 72141

== ENCOUNTER 2018-06-28 07:14 | Day surgery (SDC) | payer MEDICARE, OTHER ==
[2018-06-27 15:52] VITALS: BMI 27.8
--- NOTE | 2018-06-28 10:53 | CT ---
CT CERVICAL MYELOGRAM: Date: 06/28/18 INDICATION: History of cervical radiculopathy. TECHNIQUE: Multiple CT images were obtained of the cervical spine following intrathecal administration of Omnipa que solution. Please see the separately dictated cervical myelogram details concerning injection tech nique. Comparison made with prior MRI of the cervical spine dated 04/05/18. FINDINGS: As seen on the comparison MR examination is an ACDF plate spanning C4 and C5. There is solid osseous incorporation of the interbody bone graft. There is also postprocedural change of a prior anterior in terbody fusion of C5-6 and C6-7. The visualized prevertebral soft tissues and lung apices are clear. No pathologically enlarged lymph nodes are evident. No acute fracture is identified. The occipital C1 and C1-C2 articulations appear within normal limits. There is moderate degenerative change seen at the C1-C2 articulation anteriorly. At the C2-C3 level, there is moderate right and mild left facet joint degenerative change. There is n o appreciable central canal or neural foraminal narrowing. At C3-C4, there is prominent uncovertebral hypertrophy and severe right facet joint degenerative finnegan ges due to severe right neural foraminal narrowing. There is associated mild broad based bulge. At the C4-5 level, there is advanced facet joint degenerative change. There is some residual uncovert ebral hypertrophy. There is moderate to severe right and moderate left neural foraminal narrowing. Th ere is a residual osteophyte complex causing mild central canal narrowing. At C5-6, there is uncovertebral hypertrophy and facet joint degenerative change, but no appreciable c entral canal or neural foraminal narrowing. At C6-7, there is a residual osteophyte complex and facet degenerative changes inducing mild neural f oraminal encroachment, but no appreciable impingement. At C7-T1, there is very slight anterior translation of C7 on T1. There is a mild broad based bulge. T here is advanced disc osteophyte complex and facet degenerative change, greater on the left, inducing severe left neural foraminal narrowing. IMPRESSION: Postprocedural change of an interbody fusion of C4 through C7. There is prominent advanced adjacent s egment degeneration at C7-T1 and C3-4, as detailed above. POS: [facility]
--- NOTE | 2018-06-28 12:05 | RAD ---
CERVICAL SPINE MYELOGRAM INDICATION: Cervical radiculopathy. PROCEDURE: After informed consent had been obtained, the patient was escorted to the interventional suite and pl aced on the procedural table. Yeast Stacker imaging was performed. The patient was placed into a prone posi tion. Skin on the low back was then prepped and draped in the standard sterile fashion and topical a nd regional soft tissue anesthesia was achieved with 1% lidocaine and sodium bicarbonate. Posterior L2-3 interlaminar approach was selected, and a 22 gauge needle was uneventfully advanced into the th ecal sac with clear color CSF. Subsequently, 8 cc Isovue-M 300 was instilled into the thecal sac und er real time fluoroscopy. Appropriate opacification of thecal sac demonstrated with imaging stored f or confirmation. The needle was then removed from the patient. The patient tolerated the procedure well and was then transferred to CT to undergo subsequent myelogram. Reference separate report for f ull details. FLUOROSCOPY DATA: 0.1 minutes intermittent fluoroscopy; 18 mGy *^m2. IMPRESSION: Technically successful cervical myelogram as detailed above. POS: [facility]
[2018-06-28] MEDS ORDERED: Iopamidol-M 300 61% 15 ML VIAL ONE (16:46)
== END 2018-06-28 09:45 | disposition home or self-care (01) ==
LOC: RAD 07:14
PROVIDERS: ATTEND Neurological Surgery
PROC: B01B1ZZ Fluoroscopy of Spinal Cord using Low Osmolar Contrast (ICD-10-PCS; principal; 2018-06-28)
DX: M47.22 Other spondylosis with radiculopathy, cervical region (principal); M48.02 Spinal stenosis, cervical region; Z79.02 Long term (current) use of antithrombotics/antiplatelets; Z79.82 Long term (current) use of aspirin; Z79.899 Other long term (current) drug therapy; Z88.5 Allergy status to narcotic agent; Z88.8 Allergy status to other drugs, medicaments and biological substances; Z98.1 Arthrodesis status
CPT/HCPCS: 62302; 72126

== ENCOUNTER 2018-10-11 16:07 | Outpatient (CLI) | payer MEDICARE, OTHER ==
--- NOTE | 2018-10-11 16:58 | RAD ---
XR Cervical Spine 4 View Min History: [Cervical radiculopathy] Comparison: CT cervical spine June 28, 2018 Findings: ACDF hardware at C4/C5 with discectomy spacers. Sulci discectomy spacers at C5/C6 and C6/C7 with osseous fusion. No acute fracture or malalignment. No significant listhesis with flexion or extension. Moderate degen erative disc space height loss at C3/C4. Visualized ribs are unremarkable. Impression: Degenerative change. No acute abnormality. No significant listhesis with flexion or exten nate.
== END 2018-10-11 16:08 | disposition home or self-care (01) ==
LOC: BICRAD 16:07
PROVIDERS: ATTEND Neurological Surgery
DX: M47.22 Other spondylosis with radiculopathy, cervical region (principal)
CPT/HCPCS: 72050

== ENCOUNTER 2019-05-13 10:34 | Outpatient (CLI) | payer MEDICARE, OTHER ==
--- NOTE | 2019-05-13 12:33 | MRI ---
CERVICAL SPINE MRI WITHOUT CONTRAST: DATE: 05/13/2019. COMPARISON: None. HISTORY: Cervical radiculopathy, cervical spine pain radiating into bilateral shoulders with upper extremity r adiculopathy. TECHNIQUE: Multiplanar, multisequence MR imaging of the cervical spine is provided without contrast. FINDINGS: Multilevel anterior diskectomy and fusion hardware noted within the cervical spine including anterior screw and late fixation at C4-5 and intervertebral disk devices at C4-5, C5-6, and C6-7. The sagitt al STIR imaging demonstrates no focal area of osseous marrow edema. There is moderate degenerative change at the atlantoaxial interspace. C2-3: There is disk space narrowing and disk desiccation. There is facet hypertrophy bilaterally, r ight greater than left. There is mild right-sided neural foraminal stenosis. C3-4: Prominent facet and uncovertebral osteophyte formation on the right with prominent right-sided neural foraminal stenosis. Disk desiccation with mild disk bulge. No significant central canal or left-sided neural foraminal stenosis. C4-5: Detailed assessment is slightly limited secondary to hardware artifact. There is bilateral fa cet and uncovertebral osteophyte formation. No significant central canal stenosis. Probable mild ri ght and moderate left neural foraminal stenosis. C5-6: No significant central canal stenosis. Probable mild left neural foraminal stenosis on the ba sis of mild facet hypertrophy and uncovertebral osteophyte formation. C6-7: Mild bilateral facet and uncovertebral osteophyte formation. No significant central canal ted nosis. Mild bilateral neural foraminal stenosis. C7-T1: There is disk space narrowing and disk desiccation with bilateral facet hypertrophy, left gre ater than right. Moderate/severe left and mild right neural foraminal stenosis. No significant cent ral canal stenosis. No focal area of abnormal signal intensity within the cervical cord. IMPRESSION: Postoperative and degenerative change within the cervical spine as detailed above. POS: [facility]
--- NOTE | 2019-05-13 13:09 | MRI ---
Thoracic spine MRI without contrast: 05/13/2019 COMPARISON: None HISTORY: Radiculopathy TECHNIQUE: Multiplanar multisequence MR imaging of the thoracic spine obtained without contrast FINDINGS: The sagittal STIR imaging demonstrates no focal area of osseous marrow edema. Thoracic vertebral body height and alignment appears normal. Multiple scattered benign hemangiomata a re noted within the thoracic spine. Bilateral facet hypertrophy is noted at T1-2 level with associated significant bilateral neural princess inal stenosis, right greater than left. At T2-3 facet hypertrophy bilaterally causes a mild/moderate degree of bilateral neural foraminal stenosis. No additional areas of significant neura l foraminal stenosis are noted within the thoracic spine. There is no significant central canal stenosis within the thoracic spine. No focal area of abnormal s ignal intensity is identified within the cervical cord. Please note that detailed assessment for central canal stenosis is limited secondary to motion artifact on the axial imaging. There is mild di sc space narrowing with disc desiccation and mild disc bulge T11-12, T12-L1, and L1-2, with probable mild central canal stenosis in these regions. IMPRESSION: Areas of upper thoracic spine neural foraminal stenosis, most prominent on the right at T 1-2.
== END 2019-05-13 10:35 | disposition home or self-care (01) ==
LOC: BICMRI 10:34
PROVIDERS: ATTEND Anesthesiology Pain Medicine
DX: M47.22 Other spondylosis with radiculopathy, cervical region (principal); M48.04 Spinal stenosis, thoracic region; Z98.1 Arthrodesis status
CPT/HCPCS: 72141; 72146

== ENCOUNTER 2019-10-18 12:49 | Outpatient (CLI) | payer MEDICARE, OTHER ==
--- NOTE | 2019-10-18 13:12 | RAD ---
EXAM: Chest PA and lateral: HISTORY: Dyspnea. COMPARISON: 03/18/2014, 01/02/2018 FINDINGS: Heart: Enlarged cardiac silhouette Aorta: Atherosclerosis of the aorta Pulmonary vessels: Normal Costophrenic angles: Costophrenic angles are clear. Lungs: No consolidation or masses. Pneumothorax: No pneumothorax Osseous structures: No osseous abnormalities IMPRESSION: No acute cardiopulmonary process.
== END 2019-10-18 12:50 | disposition home or self-care (01) ==
LOC: SCSRAD 12:49
PROVIDERS: ATTEND Specialist
DX: R06.00 Dyspnea, unspecified (principal); Z11.59 Encounter for screening for other viral diseases
CPT/HCPCS: 71046; 87635; U0003

== ENCOUNTER 2020-04-14 14:23 | Inpatient (IN) | payer MEDICARE, OTHER ==
[2020-04-14] MEDS ORDERED: Ondansetron PF 4 MG/2 ML Vial ONE (17:56)
[2020-04-14] MEDS ORDERED: Morphine 4 MG/ML VIAL ONE ×2 (17:56→22:45)
--- NOTE | 2020-04-14 19:34 | RAD ---
4 VIEWS RIGHT KNEE: Date: 04/14/2020 COMPARISON: None. HISTORY: Injury, trauma, pain. FINDINGS: There is a markedly comminuted distracted acute fracture of the patella with prominent associated sof t tissue swelling. No evidence for dislocation. No additional fracture is seen. IMPRESSION: Severely comminuted and distracted patellar fracture with prominent overlying soft tissue swelling. O rthopedic consultation advised. POS: [facility]
--- NOTE | 2020-04-14 19:36 | RAD ---
RIGHT FOOT THREE VIEWS: 04/14/20 HISTORY: Pain. COMPARISON: None. FINDINGS: Large plantar calcaneal spur. No acute displaced fracture or malalignment although somewhat limited d ue to hyperextension of the metatarsophalangeal joints, claw toes. Lisfranc interval is maintained. IMPRESSION: 1. No acute osseous abnormality. 2. 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 POS: [facility]
--- NOTE | 2020-04-14 19:39 | CT ---
CT OF CERVICAL SPINE PERFORMED WITHOUT CONTRAST ENHANCEMENT: Date: 04/14/2020 HISTORY: Neck injury post fall. FINDINGS: Extensive postop changes are noted. Anterior plate and screws have been placed at the C4-5 level. Bon y fusion changes and disc implants at C5-6 and C6-7. Marked disc narrowing at C7-T1. There are promin ent degenerative facet changes. These facet changes are more right-sided. The facets are in normal al ignment. There is marked right-sided foraminal stenosis at C3-4. Bilateral mild to moderate foraminal stenosis at the C4-5 level. Canal shows a mild degree of stenosis at C6-7. There is no CT evidence for fractu re. The lung apices are clear. IMPRESSION: No CT evidence of fracture of the cervical spine. POS: [facility]
--- NOTE | 2020-04-14 19:42 | CT ---
CT OF BRAIN 04/14/20 HISTORY: Head injury. Status post fall. The ventricular and cisternal system shows some generalized atrophy fairly age appropriate. There is no signs of intracerebral hemorrhage or extra-axial fluid collections. Mastoid air cells and visualiz ed sinuses are clear. IMPRESSION: No acute intracranial abnormality. POS: [facility]
[2020-04-14 20:03] LABS: ALT (SGPT) 31 U/L (8-55); AST (SGOT) 37 U/L (5-34); Albumin 4.2 g/dL (3.4-4.8); Alkaline Phosphatase 106 U/L (40-110); Anion Gap 18 mmol/L (10-20); BUN (Urea Nitrogen) 13 mg/dL (9.8-20.1); Bilirubin, Total 0.5 mg/dL (0.2-1.2); Calc. Creatinine Clearance 0 mL/min (70-130); Calcium 9.2 mg/dL (7.8-10.44); Carbon Dioxide 22 mmol/L (23-31); Chloride 104 mmol/L (98-107); Globulin 3.2 g/dL (2.4-3.5); Glucose 89 mg/dL (83-110); Potassium 4.4 mmol/L (3.5-5.1); Protein, Total 7.4 g/dL (6.0-8.3); Sodium 140 mmol/L (136-145)
[2020-04-14] MEDS ORDERED: rOPINIRole HCl 2 MG TAB PO PRN (20:37)
[2020-04-14] MEDS ORDERED: Calcium Carbonate 600 MG + Vit D TAB PO SCH (22:15)
[2020-04-14] MEDS ORDERED: Famotidine 20 MG TAB PO SCH (22:15)
[2020-04-14] MEDS ORDERED: Gabapentin 300 MG CAP PO SCH (22:15)
[2020-04-14] MEDS: Ezetimibe 10 MG TAB PO SCH (22:48)
[2020-04-14] MEDS: Morphine 2 MG/ML VIAL SLOW IVP PRN (22:53)
[2020-04-14 23:08] LABS: #Basophils 0.1 thou/uL (0.0-0.2); #Eosinphils 0.4 thou/uL (0.0-0.7); #Lymphocytes 1.8 thou/uL (1.20-3.40); #Monocytes 0.5 thou/uL (0.11-0.59); #Neutrophils 4.3 thou/uL (1.40-6.50); %Basophils 1.3 % (0.0-1.0); %Lymphocytes 24.8 % (21.0-51.0); %Monocytes 6.9 % (0.0-10.0); Hemoglobin 12.5 g/dL (12.0-16.0); Mean Corpuscular Volume 94.2 fL (78.0-98.0); Mean Platelet Volume 6.6 fL (7.4-10.4); Platelet Count 280 thou/uL (130-400); RBC Distribution Width 12.1 % (11.5-14.5); Red Blood Cell (RBC) Count 4.03 mill/uL (4.20-5.40); White Blood Cell (WBC) Count 7.1 thou/uL (4.8-10.8)
[2020-04-14] MEDS ORDERED: traMADol HCl 50 MG TAB ONE (23:24)
[2020-04-14] MEDS ORDERED: Acetaminophen 500 MG TAB ONE (23:25)
[2020-04-14] MEDS: Acetaminophen 500 MG TAB PO SCH (23:27)
[2020-04-14] MEDS: Ibuprofen 200 MG TAB PO SCH (23:28)
[2020-04-14] MEDS: traMADol HCl 50 MG TAB PO SCH (23:28)
--- NOTE | 2020-04-15 00:20 | HP ---
PRIMARY CARE PROVIDER: Dr. Ya. CORRECTION WORKER: Dr. Multani. CONSULTING ORTHOPEDIST: Dr. Cutler. HISTORY OF PRESENT ILLNESS: Ms. Blanc is a 74-year-old female with a past medical history of multiple back surgeries, coronary artery disease, hep B virus many years ago, and MN, presenting to the emergency department today with a chief complaint of right leg pain status post fall. The patient was at the [facility] and states that she was trying to move something with her leg, resulting in a fall landing straight on her knee. She has a patellar fracture. Dr. Cutler has been consulted and recommends admission for operative repair in the morning. The patient is in a straight knee immobilizer. She has no other injuries. She is on Plavix and aspirin, last dose I believe today, and she struck her head without any loss of function. She has no neuro deficits. However, CT C-spine and head have been obtained. The patient has been given morphine. Pain is generally controlled. She is GCS 15. Awake and alert. is at the bedside. I evaluated the patient in the emergency department. Of note, [facility] is down and most of the orders are written orders that are faxed that are not yet in the computer including medications and laboratory test for tomorrow. We will need to do further orders once [employer] is back up. REVIEW OF SYSTEMS: The patient has no nausea, no vomiting, no syncope, no chest pain, no shortness of air, no headache, no neck pain, and no dysuria. She has not been ill. She has not traveled. She has not had any recent weight loss. She does endorse chronic back pain and neuropathy. PAST MEDICAL HISTORY: Significant for; 1. Coronary artery disease. 2. MN. 3. HPV. 4. Double pneumonia. PAST SURGICAL HISTORY: Going to be a C4-C5 fusion, L2-L3 decompression, cardiac stent in 2004, left shoulder surgeries both in 2008 and 2009. She has had a synovial cyst removed back in 2003. She has had a cholecystectomy many years ago, S1-L5 fusion. She has had a hysterectomy. SOCIAL HISTORY: Significant for no tobacco use lifelong. 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 She is and retired. MEDICATIONS: 1. Synthroid 100 mcg daily. 2. Neurontin up to 3000 mg daily per her. 3. Spironolactone 25 mg daily. 4. Imdur 15 mg daily. 5. Linzess daily. 6. Aspirin 81 mg. 7. Celebrex 400 mg. 8. Crestor 5 mg daily. 9. Toprol 25 mg. 10. Protonix 40 mg. 11. Torsemide 10 mg. 12. Plavix 75 mg. 13. CoQ10 at 200 mg. 14. Zetia 10 mg. 15. Requip 2 mg. 16. Imipramine 10 mg. 17. Belbuca 150 mcg as needed. 18. Temazepam 15 mg. ALLERGIES: TO PHENERGAN AND OXYCONTIN. FAMILY HISTORY: Unknown. PHYSICAL EXAMINATION: VITAL SIGNS: Temperature is 97.6, blood pressure 149/80, heart rate is 71, respiratory rate is 18. She is saturating 98% on room air. GENERAL: This is a 74-year-old female, sitting up, nontoxic, in no acute distress. HEENT: Normocephalic, atraumatic. NECK: Trachea is midline. RESPIRATORY: Equal rise and fall. Bilateral breath sounds. Clear to auscultation in upper and lower lobes bilaterally. CARDIOVASCULAR: Regular rate and rhythm. No murmur. ABDOMEN: Soft and nontender. PELVIS: Stable. MUSCULOSKELETAL: She does have sensation in all of her extremities. She is able to move all of her extremities. She does have an effusion about the right knee, some bruising noted. Otherwise, no joint pain. NEUROLOGIC: Alert and oriented to person, place, time, and event. GCS is 15. PSYCH: Normal mood and affect. SKIN: Warm and dry. DIAGNOSTIC DATA: X-ray showing a right knee effusion. LABORATORY DATA: Please see the computer, most of this has not resulted as we are in a downtime right now. CT C-spine and CT head are pending. ASSESSMENT: 1. Acute traumatic pain. 2. Right femoral fracture. 3. Mechanical fall. 4. History of coronary artery disease and multiple back surgeries as well as chronic pain. PLAN: 1. We will admit the patient to surgery mendez. 2. Trauma bowel regimen can be initiated. 3. Nonweightbearing to right lower extremity. 4. Dr. Cutler of Orthopedics has been consulted, I appreciate recommendations. 5. Pain control this evening with multimodal . Of note, the patient is on buprenorphine as needed for pain. She only takes this sometimes and we need to change our pain management regimen if she is not well controlled, currently she is. 6. We will repeat labs in the morning. 7. N.p.o. after midnight. 8. We will hold DVT chemical prophylaxis at this time. 9. Full code. 10. Access of peripheral IV. 11. Disposition is surgery mendez. 12. Activity is going to be rest. 13. I have updated the patient and the patient's family at bedside, coordinating care with the emergency department staff. This plan can be updated as needed. Of note, again, [facility] is down. Please see paper chart for orders. If they are not in [facility], we will update [facility] when we are available. Job ID: [id number]
[2020-04-15] MEDS ORDERED: Acetaminophen 500 MG TAB ONE ×2 (04:11→10:26)
[2020-04-15] MEDS ORDERED: traMADol HCl 50 MG TAB ONE ×2 (04:11→10:26)
[2020-04-15] MEDS: Acetaminophen 500 MG TAB PO SCH ×4 (04:29→22:46)
[2020-04-15] MEDS: traMADol HCl 50 MG TAB PO SCH ×4 (04:29→23:19)
[2020-04-15 06:36] LABS: SARS-CoV-2 MS2 Positive; SARS-CoV-2 N Gene Negative; SARS-CoV-2 S Gene Negative; SARS-CoV-2 by NAA Not Detected (NotDetected); SARS-CoV-2 orf1ab Negative
[2020-04-15 07:01] LABS: #Basophils 0.1 thou/uL (0.0-0.2); #Eosinphils 0.6 thou/uL (0.0-0.7); #Lymphocytes 2.2 thou/uL (1.20-3.40); #Monocytes 0.7 thou/uL (0.11-0.59); #Neutrophils 3.1 thou/uL (1.40-6.50); %Basophils 1.6 % (0.0-1.0); %Eosinophils 8.6 % (0.0-10.0); %Lymphocytes 33.2 % (21.0-51.0); %Monocytes 10.4 % (0.0-10.0); %Neutrophils 46.2 % (42.0-75.0); Hemoglobin 11.5 g/dL (12.0-16.0); Mean Corpuscular HGB CONC 33.2 g/dL (32.0-36.0); Mean Corpuscular Hemoglobin 31.5 pg (27.0-31.0); Mean Platelet Volume 6.8 fL (7.4-10.4); Platelet Count 239 thou/uL (130-400); RBC Distribution Width 12.3 % (11.5-14.5); Red Blood Cell (RBC) Count 3.64 mill/uL (4.20-5.40); White Blood Cell (WBC) Count 6.6 thou/uL (4.8-10.8)
[2020-04-15 07:39] LABS: Anion Gap 14 mmol/L (10-20); BUN (Urea Nitrogen) 20 mg/dL (9.8-20.1); Calc. Creatinine Clearance 0 mL/min (70-130); Calcium 8.7 mg/dL (7.8-10.44); Carbon Dioxide 25 mmol/L (23-31); Chloride 106 mmol/L (98-107); Glucose 85 mg/dL (83-110); Magnesium 2.1 mg/dL (1.6-2.6); Phosphorus 5.6 mg/dL (2.3-4.7); Potassium 4.7 mmol/L (3.5-5.1); Sodium 140 mmol/L (136-145)
[2020-04-15] MEDS ORDERED: Ibuprofen 200 MG TAB ONE (08:14)
[2020-04-15] MEDS: Ibuprofen 200 MG TAB PO SCH ×3 (08:23→23:18)
[2020-04-15] MEDS: Levothyroxine Sodium 100 MCG TAB PO SCH (08:24)
[2020-04-15] MEDS ORDERED: CEFAZOLIN 2 GM in Premix Bag 1 BAG IVPB SCH (08:45)
--- NOTE | 2020-04-15 09:22 | CON ---
DATE OF CONSULTATION: PRIMARY CARE PHYSICIAN: Dr. Ya. REASON FOR CONSULTATION: We were asked by ER and Trauma to see patient. HISTORY OF PRESENT ILLNESS: Patient is a 74-year-old female who fell at the [facility] yesterday. She was getting up from the wash station and tried to move a stepstool away with the right leg where her leg gave out. She feels like she twisted her ankle, landed on her knee, and hit her right side of the face on the wash sink. She did not lose consciousness. She did not have any dizziness or shortness of breath upon falling. She remembers everything about the fall. After the fall she was unable to stand up and had significant right knee pain, some right facial pain and a little bit of ankle pain. She has had an extensive amount of back surgeries, 4 to be exact and has weakness in both lower extremities, right greater than left. She has a little bit of occasional neurological problems in the left leg, but good sensations in the right. She has also had some cervical surgeries in the past. Currently, she is resting on a gurney in room 20 in the ER. Since our hospital is at capacity there are no beds for her currently. She understands the need for surgery. She has had an extensive surgery history and understands risks and benefits of undergoing surgery. She had a stent in 2004. She sees Dr. Multani for heart. She is on Plavix and aspirin, last dose being Sunday night she believes. She is unable to raise that right lower extremity, I am unsure if it is because of the fracture or pain, but she did give it a fairly good effort. No numbness and tingling in that right lower extremity. PAST MEDICAL HISTORY: Coronary artery disease, [place], HPV, pneumonia, chronic regional pain syndrome, some neuropathy. PAST SURGICAL HISTORY: Cervical, lumbar x4, cardiac stent, left shoulder x2, cholecystectomy, hysterectomy. SOCIAL HISTORY: Resides at home with her , very independent and active. No nicotine or drug products, but has wine a few times a week. ALLERGIES: PHENERGAN, OXYCONTIN, CAUSES MORE OF A NEUROLOGICAL ISSUE. FAMILY HISTORY: For this particular event is noncontributory. CURRENT MEDICATIONS: 1. Synthroid. 2. Neurontin. 3. Spironolactone. 4. Imdur. 5. Linzess. 6. Aspirin. 7. Celebrex. 8. Crestor. 9. Toprol. 10. Protonix. 11. Torsemide. 12. Plavix. 13. CoQ10. 14. Zetia. 15. Requip. 16. Imipramine. 17. Belbuca. 18. Temazepam p.r.n. REVIEW OF SYSTEMS: Denies any chest pain, shortness of breath. Does have a little bit of right facial pain due to the fall. Right knee pain, ankle on the right is a little sore. History of chronic regional pain syndrome in the right arm that flares up occasionally. Otherwise, rest of review of systems is negative. Doctors that she sees, Dr. Casas, Dr. Tavarez, Dr. Multani, Dr. Mcarthur. PHYSICAL EXAMINATION: GENERAL: Well-nourished, well-developed female, alert, very pleasant. Speech clear. No acute distress, resting on a gurney in room 20 due to hospital being at capacity. HEENT: Scalp is atraumatic. Face symmetric, but she does have some bruising to the right side of her face that is mildly tender to palpation. CT of the head and face was negative. Her smile is symmetric. Tongue midline. NECK: Supple. Trachea midline. CT of the neck was negative. EXTREMITIES: Upper extremities; equal size, shape, symmetry, normal bulk and tone. Movements and sensations are intact. Respirations 16, no acute distress. Pelvis nonpainful with rocking. Lower extremities; also equal size, shape, symmetry, normal bulk and tone with the exception of the right lower extremity the area around the knee is starting to bruise and is quite swollen, but skin is pliable. She is unable to do a straight leg raise. I am not sure if it is from pain or the fracture of the patella, but her right quad is firing fine. The rest of lower extremities, DP and PT pulses are intact. She is able to feel both feet and move them without any difficulty. IMAGING STUDIES: X-rays; positive patella fracture. LABORATORY DATA: COVID negative yesterday. Rest of labs are within normal limits. She is mildly anemic. Her creatinine is 1.35. ASSESSMENT: Fall with ensuing right patella fracture. PLAN: I spoke with the patient. She understands risks and benefits of surgery. She has undergone multiple surgeries, but we did discuss bleeding, infection, scarring, bad things that can happen with surgery, stroke, heart attack, blood clots. She understands all of this. I told her we will get her on the surgery schedule this afternoon. Trauma has cleared her. Plan to do an ORIF of the right patella. We will get antibiotics ordered. I would like her to go up to the floor. Unfortunately, the hospital is filled so she may have to wait in the ER and I explained this to the patient, which she understands. If she should need any of her other specialist while in the hospital we will get those consulted. Trauma will do med management. Her last dose of Plavix was Sunday night as far as she remembers. Patient is happy with the plan and amenable to go forth with surgery. Job ID: [id number] [facility]
[2020-04-15] MEDS ORDERED: Morphine 2 MG/ML VIAL ONE (10:34)
[2020-04-15] MEDS: Ubidecarenone 50 MG CAP PO SCH (10:45)
[2020-04-15] MEDS: Rosuvastatin 5 MG TAB PO SCH (10:45)
[2020-04-15] MEDS: Gabapentin 300 MG CAP PO SCH ×3 (10:45→23:19)
[2020-04-15] MEDS: Morphine 2 MG/ML VIAL SLOW IVP PRN (11:00)
[2020-04-15] MEDS ORDERED: Lidocaine 1% PF 5 ML VIAL ONE (11:18)
[2020-04-15] MEDS ORDERED: Calcium Chloride 1 GM/10 ML Abboject SYRINGE ONE (11:18)
[2020-04-15] MEDS ORDERED: ePHEDrine 50 MG/ML VIAL ONE (11:18)
[2020-04-15] MEDS ORDERED: PROPOFOL 200 MG/20 ML VIAL ONE (11:18)
[2020-04-15] MEDS ORDERED: PHENYLEPHRINE-NS 100 MCG/ML 10 ML SYRINGE ONE (11:18)
[2020-04-15] MEDS ORDERED: Fentanyl 100 MCG/2 ML VIAL ONE ×4 (16:05→19:38)
[2020-04-15] MEDS ORDERED: Bupivacaine PF 0.5% 30 ML VIAL ONE (17:07)
--- NOTE | 2020-04-15 19:27 | RAD ---
RIGHT KNEE TWO VIEWS: 04/15/20 HISTORY: Postop. Two C-arm views show open reduction internal fixation of a patellar fracture with screws and wire. IMPRESSION: Postop changes of the patella. POS: [facility]
[2020-04-15] MEDS ORDERED: HYDROmorphone 0.5 MG/0.5 ML SYRINGE ONE (19:45)
[2020-04-15] MEDS: Calcium Carbonate 600 MG + Vit D TAB PO SCH (22:40)
[2020-04-15] MEDS: Famotidine 20 MG TAB PO SCH (22:40)
[2020-04-15] MEDS: Ezetimibe 10 MG TAB PO SCH (22:40)
--- NOTE | 2020-04-15 22:52 | OP ---
DATE OF PROCEDURE: 04/15/2020 PROCEDURES PERFORMED: Open reduction and internal fixation of right patella fracture. PREOPERATIVE DIAGNOSIS: Displaced right patella fracture. POSTOPERATIVE DIAGNOSIS: Displaced right patella fracture. COMPLICATIONS: None. ESTIMATED BLOOD LOSS: 100 mL. SENIOR RISK ANALYST: Ebenezer Acosta PA-C IMPLANTS: Two Synthes 4.5 mm cannulated screws were utilized with cerclage wire and Mersilene tape. INDICATIONS: Ms. Blanc is a 74-year-old female, who has fallen and fractured her patella. She has a comminuted and displaced fracture. She has been indicated for open reduction and internal fixation to restore anatomic alignment of the patella and promote healing. Risks have been reviewed in detail. She has elected to proceed with the operation. DESCRIPTION OF PROCEDURE: Ms. Blanc was identified in the preoperative holding area. Her correct extremity was marked. She was carried to the operating room. She was positioned supine. General anesthesia was induced. A multidisciplinary time-out was performed. The right lower extremity was prepped and draped in a sterile fashion. We began the procedure with anterior incision over the knee. We dissected down through the subcutaneous tissues to the fascia, which was opened exposing the highly comminuted and displaced patella fracture. We irrigated the joint and cleared the bony edges. There was approximately six fragments. These were reduced using multiple reduction clamps and K-wires holding the patella back into anatomic reduced position. At this point, we passed two K-wires through the patella from inferior to superior. We then overdrilled the K-wires and measured the length. Next, we placed two 34 mm length 4.5 mm screws. At this point, we passed a wire through these and brought this over the top of the patella in a tension band technique. This was tightened appropriately. At this point, we then oversewed the retinaculum with Ethibond suture medially and laterally to support our repair. Finally, we passed a Mersilene tape in a cerclage fashion around the patella and tied this securely. We thoroughly irrigated. We then closed with 0 Vicryl suture, 2-0 Vicryl suture, and shala for the skin. A sterile dressing was applied. The patient was taken to the recovery room in good condition. The seed laboratory assistant surgeon was responsible for positioning the patient, preparing the injured extremity, applying the tourniquet, and assisting in preparation for surgery. The seed laboratory assistant was instrumental in reducing the injured limb by applying traction and reduction maneuvers as well as holding retractors and reduction tools. The seed laboratory assistant also was instrumental in assisting in exposure throughout the operation using appropriate retractors. The seed laboratory assistant participated in closure of the operative site as well as dressing application and splint application. Job ID: [id number]
[2020-04-16] MEDS: CEFAZOLIN 2 GM in Premix Bag 1 BAG IVPB SCH ×2 (00:11→09:05)
[2020-04-16 01:43] VITALS: BMI 32.8
[2020-04-16] MEDS: traMADol HCl 50 MG TAB PO SCH ×3 (05:02→15:01)
[2020-04-16] MEDS: Ibuprofen 200 MG TAB PO SCH ×3 (05:02→21:00)
[2020-04-16] MEDS: Levothyroxine Sodium 100 MCG TAB PO SCH (05:02)
[2020-04-16] MEDS: Acetaminophen 500 MG TAB PO SCH ×4 (05:03→21:00)
[2020-04-16] MEDS ORDERED: Aspirin 81 mg Enteric Coated Tablet PO SCH (09:00)
[2020-04-16] MEDS: Ubidecarenone 50 MG CAP PO SCH (09:06)
[2020-04-16] MEDS: Gabapentin 300 MG CAP PO SCH ×3 (09:07→20:59)
[2020-04-16] MEDS: Rosuvastatin 5 MG TAB PO SCH (09:08)
[2020-04-16] MEDS: Clopidogrel Bisulfate 75 MG TAB PO SCH (09:39)
[2020-04-16] MEDS ORDERED: traMADol HCl 50 MG TAB PO PRN (16:27)
--- NOTE | 2020-04-16 19:29 | PRG ---
DATE OF SERVICE: 04/16/2020 SUBJECTIVE: The patient is currently on the surgical floor. She was admitted after a ground level fall when she sustained a right patella fracture which she underwent open reduction and internal fixation of yesterday. She tolerated that procedure well. Overnight, she had no issues. Today, she is requesting that her home pain medications be restarted as she does have chronic pain and has a very specific pain regimen that works for her. We have agreed to resume all of her home medications. The patient is currently awaiting placement. She is working with physical and occupational therapy. She is tolerating a diet. PHYSICAL EXAMINATION: VITAL SIGNS: Temperature 97.7, heart rate 67, blood pressure 123/69, respirations 16, oxygen saturation 97% on room air. GENERAL: The patient is resting comfortably in bed. She is awake, alert, conversant, appropriate. [place] Coma Scale is 15. HEENT: Unremarkable. LUNGS: Clear to auscultation with good inspiratory and expiratory effort. HEART: Regular rate and rhythm. ABDOMEN: Soft, flat, and nontender with active bowel sounds. EXTREMITIES: Neurovascularly intact x4. The patient has a clean, dry, and intact dressing and knee immobilizer on right lower extremity. LABORATORY DATA: There are no labs or radiographs to review this morning. ASSESSMENT: 1. Status post ground level fall. 2. Postop day 1, status post open reduction and internal fixation of right patella fracture. 3. History of chronic pain syndrome. PLAN: Plan will be to continue encouraging physical and occupational therapy and await placement decision. Again, we have resumed her home pain regimen. Job ID: [id number]
[2020-04-16] MEDS: Ezetimibe 10 MG TAB PO SCH (20:59)
[2020-04-16] MEDS: Ursodiol 300 MG CAP PO SCH (20:59)
[2020-04-16] MEDS: Famotidine 20 MG TAB PO SCH (21:00)
[2020-04-16] MEDS: Calcium Carbonate 600 MG + Vit D TAB PO SCH (21:00)
[2020-04-17] MEDS: Ibuprofen 200 MG TAB PO SCH ×3 (05:06→21:32)
[2020-04-17] MEDS: Levothyroxine Sodium 100 MCG TAB PO SCH (05:06)
[2020-04-17] MEDS: Acetaminophen 500 MG TAB PO SCH ×4 (05:07→21:31)
[2020-04-17 05:25] LABS: #Basophils 0.1 thou/uL (0.0-0.2); #Eosinphils 0.5 thou/uL (0.0-0.7); #Lymphocytes 1.9 thou/uL (1.20-3.40); #Monocytes 1.1 thou/uL (0.11-0.59); #Neutrophils 6.5 thou/uL (1.40-6.50); %Basophils 0.7 % (0.0-1.0); %Eosinophils 5.1 % (0.0-10.0); %Monocytes 10.5 % (0.0-10.0); %Neutrophils 64.7 % (42.0-75.0); Mean Corpuscular HGB CONC 31.8 g/dL (32.0-36.0); Mean Corpuscular Hemoglobin 30.2 pg (27.0-31.0); Mean Corpuscular Volume 94.9 fL (78.0-98.0); Mean Platelet Volume 6.5 fL (7.4-10.4); Platelet Count 251 thou/uL (130-400); RBC Distribution Width 12.1 % (11.5-14.5)
[2020-04-17 06:00] LABS: Anion Gap 13 mmol/L (10-20); BUN (Urea Nitrogen) 21 mg/dL (9.8-20.1); Calc. Creatinine Clearance 62 mL/min (70-130); Calcium 8.6 mg/dL (7.8-10.44); Carbon Dioxide 24 mmol/L (23-31); Chloride 105 mmol/L (98-107); Glucose 112 mg/dL (83-110); Magnesium 1.9 mg/dL (1.6-2.6); Phosphorus 3.5 mg/dL (2.3-4.7); Potassium 4.2 mmol/L (3.5-5.1); Sodium 138 mmol/L (136-145)
[2020-04-17] MEDS: Rosuvastatin 5 MG TAB PO SCH (08:35)
[2020-04-17] MEDS: Gabapentin 300 MG CAP PO SCH ×3 (08:35→21:31)
[2020-04-17] MEDS: Ubidecarenone 50 MG CAP PO SCH (08:35)
[2020-04-17] MEDS: Clopidogrel Bisulfate 75 MG TAB PO SCH (08:35)
[2020-04-17] MEDS: Aspirin Chewable 81 MG TAB PO SCH (08:35)
[2020-04-17] MEDS: Ursodiol 300 MG CAP PO SCH ×2 (08:36→21:33)
[2020-04-17] MEDS: Spironolactone 25 MG TAB PO SCH (08:36)
[2020-04-17] MEDS ORDERED: Linaclotide [Linzess] 145 MCG Capsule PO SCH (09:00)
[2020-04-17] MEDS: Buprenorphine Hcl [Belbuca] 150 MCG Film SL PRN (10:19)
--- NOTE | 2020-04-17 18:48 | PRG ---
DATE OF SERVICE: 04/17/2020 SUBJECTIVE: The patient remains on the surgical floor. She is status post a ground level fall in which she sustained a right patella fracture which she underwent open reduction and internal fixation of same. She began working with physical and occupational therapy and progressed very well to the point that she and her feel that she is more than likely want to go home as opposed to inpatient rehab at this time. She reports that she is planning to help at home, though we did offer home health and home PT. Should she desire, discharge home. She said she would think about that and see how therapy went again today. Otherwise, her pain is controlled she is tolerating a diet. We resumed her home medicines, specifically her home pain medicines which she states has helped tremendously. PHYSICAL EXAMINATION: VITAL SIGNS: Temperature is 98.2, heart rate 81, blood pressure 154/78, respirations 16, oxygen saturation is 96% on room air. GENERAL: The patient is resting comfortably in bed. She is just finished with therapy. NEUROLOGIC: She is awake, alert, appropriate. [place] Coma Scale is 15. HEENT: Unremarkable. LUNGS: Clear to auscultation bilaterally. HEART: Regular rate and rhythm. ABDOMEN: Soft, nontender with active bowel sounds. EXTREMITIES: Neurovascularly intact x4. Knee immobilizer is clean, dry, and intact. LABORATORY FINDINGS: White blood cell count 10.0, hemoglobin 10.0, hematocrit 31.3, platelets 251. Sodium 138, potassium 4.2, chloride 105, CO2 of 24, BUN 21, creatinine 1.06, glucose 112, magnesium 1.9, phosphorus 3.5. IMAGING: There are no radiographs to review this morning. ASSESSMENT: 1. Status post ground level fall. 2. Postop day 2 status post open reduction and internal fixation of right patella fracture. 3. History of chronic pain syndrome. PLAN: Plan will be to continue physical and occupational therapy and re-evaluate tomorrow and make decision on placement. Job ID: [id number]
[2020-04-17] MEDS: Famotidine 20 MG TAB PO SCH (21:32)
[2020-04-17] MEDS: Ezetimibe 10 MG TAB PO SCH (21:32)
[2020-04-17] MEDS: Calcium Carbonate 600 MG + Vit D TAB PO SCH (21:33)
[2020-04-18] MEDS: Buprenorphine Hcl [Belbuca] 150 MCG Film SL PRN ×2 (00:27→14:56)
[2020-04-18] MEDS: Acetaminophen 500 MG TAB PO SCH ×2 (04:56→09:30)
[2020-04-18] MEDS: Levothyroxine Sodium 100 MCG TAB PO SCH (05:00)
[2020-04-18] MEDS: Ibuprofen 200 MG TAB PO SCH ×2 (05:00→14:43)
[2020-04-18] MEDS: Rosuvastatin 5 MG TAB PO SCH (08:07)
[2020-04-18] MEDS: Ubidecarenone 50 MG CAP PO SCH (08:08)
[2020-04-18] MEDS: Spironolactone 25 MG TAB PO SCH (08:08)
[2020-04-18] MEDS: Aspirin Chewable 81 MG TAB PO SCH (08:08)
[2020-04-18] MEDS: Clopidogrel Bisulfate 75 MG TAB PO SCH (08:08)
[2020-04-18] MEDS: Ursodiol 300 MG CAP PO SCH (08:09)
[2020-04-18] MEDS: Gabapentin 300 MG CAP PO SCH ×2 (08:09→14:44)
[2020-04-18 12:40] VITALS: TEMP 98.2
[2020-04-18 14:59] VITALS: BP 129/74
--- NOTE | 2020-04-20 05:16 | PQF ---
CLINICAL DOCUMENTATION CLARIFICATION FORM: Dear : Martín Herzog Date / Time: 04/20/20514 Please exercise your independent, professional judgment in responding to the clarification form. Clinical indicators are provided on the bottom of this form for your review Based on your clinical judgment, can you please clarify the diagnosis of right femoral fracture? Please check appropriate box(es): [ X ] Traumatic Right Femoral Fracture [ ] No femoral fracture [ ] Other diagnosis, please specify: [ ] Unable to determine Physician Signature: Date/Time: For continuity of documentation, please document condition throughout progress notes and discharge summary. Thank You. To be completed by CDI/Coding staff for physician review: Present Clinical Indicators - Signs / Symptoms / Labs Results and Location in Medical Record [X] BP 120/99, Pulse 71, Resp 16, Temp 98.0 Vital signs 04/14 [X] Complaint of right leg pain s/p fall H&P p1 04/14 Georgie QURESHI-C [X] trying to move something with her leg, resulting in a fall landing straight on her knee H&P p1 04/14 Georgie QURESHI-C [X] Acute traumatic pain H&P p3 04/14 Georgie PA-C [X] Right femoral fracture H&P p3 04/14 Georgie QURESHI-C Present Risk Factors Results and Location in Medical Record [X] 74 year-old Female H&P p1 04/14 Georgie PA-C [X] Right Patellar fx s/p ORIF Operative report Dr Cutler 04/15 [X] s/p fall H&P p1 04/14 Georgie QURESHI-C Present Treatments Results and Location in Medical Record [X] Tramadol Hcl 100 mg oral MAR 04/14 [X] IV Morphine Sulfate 4 mg JUL 16 [X] Tylenol 400 mg JUL 16 [X] Ortho consult Consult Dr Acosta 04/15 [X] Nonweight bearing to right lower extremity HP 04/14 [facility] Signature: Kala Garcia Phone #: [phone] Date/Time: 04/20/202043 This is a permanent part of the Medical Record [facility]
--- NOTE | 2020-05-07 12:02 | EKG ---
Test Reason : Blood Pressure : / mmHG Vent. Rate : 060 BPM Atrial Rate : 060 BPM P-R Int : 186 ms QRS Dur : 074 ms QT Int : 420 ms P-R-T Axes : 055 017 041 degrees QTc Int : 420 ms Normal sinus rhythm Possible Left atrial enlargement Borderline ECG No previous ECGs available Confirmed by DR. Neel ALFORD ([id number]) on 05/07/2020 12:02:06 PM Referred By: JEREMY Confirmed By:DR. Neel ALFORD
== END 2020-04-18 16:10 | disposition home health service (06) | DRG 515 ==
LOC: ERS 14:23 → ERHOLD 18:45 → 2NO 18:52 → ERHOLD 18:52 → SURG B 04-15 13:02
PROVIDERS: ADMIT Surgery; ATTEND Surgery
PROC: 0QSD04Z Reposition Right Patella with Internal Fixation Device, Open Approach (ICD-10-PCS; principal; 2020-04-15)
DX: S82.041A Displaced comminuted fracture of right patella, initial encounter for closed fracture (principal); S72.91XA Unspecified fracture of right femur, initial encounter for closed fracture; Z20.828 Contact with and (suspected) exposure to other viral communicable diseases; W17.89XA Other fall from one level to another, initial encounter; I25.10 Atherosclerotic heart disease of native coronary artery without angina pectoris; G89.4 Chronic pain syndrome; I25.2 Old myocardial infarction; Z86.19 Personal history of other infectious and parasitic diseases; Z98.1 Arthrodesis status; Z90.49 Acquired absence of other specified parts of digestive tract; Y92.89 Other specified places as the place of occurrence of the external cause; Z79.890 Hormone replacement therapy; Z79.82 Long term (current) use of aspirin; Z79.02 Long term (current) use of antithrombotics/antiplatelets; Z88.8 Allergy status to other drugs, medicaments and biological substances
CPT/HCPCS: 36415; 70450; 72125; 76000; 80048; 80053; 83735; 84100; 85025; 86850; 86900; 86901; 87635; 93005; 93010; 96374; 96375; C1713; C1769; J0690; J1170; J2270; J2405; J2704; J3010; J3490; S0020; U0003

== ENCOUNTER 2020-05-20 15:49 | Outpatient (CLI) | payer MEDICARE, OTHER ==
--- NOTE | 2020-05-20 16:09 | RAD ---
Chest 2 views HISTORY: Dyspnea. COMPARISON: 10/18/2019. FINDINGS: Cardiac silhouette and pulmonary vasculature are unremarkable. Mediastinum is midline. Postoperative changes of the cervical spine and lumbar spine. Pectus excavatum apparent on the lateral view. No confluent airspace consolidation, pneumothorax, or pleural fluid. IMPRESSION : No acute abnormalities are demonstrated.
--- NOTE | 2020-05-20 16:51 | MRI ---
MRI lumbar spine noncontrast HISTORY: Low back pain. Prior surgery. FINDINGS: Vertebral body heights and alignment are maintained. Bilateral pedicle screws are in place at the L2-3-4-5 levels. No edema or findings of complication. Degenerative changes lower thoracic spine without significant spinal cord compression evident. T12-L1: Disc space narrowing. Posterior disc bulge and circumferential degenerative changes. Moderate stenosis of the central canal and each neural foramen. L1-2: Discogenic endplate changes. Disc space narrowing and minimal degenerative retrolisthesis. Post erior disc bulge and circumferential degenerative changes. Very severe stenosis of the central canal. Severe stenosis of each neural foramen. L2-3: Postoperative changes. Loss of disc space and minimal degenerative retrolisthesis. Partial limi brooke growth. Thecal sac is patent. Neural foramina favored to be patent. L3-4: Postoperative changes. Osteophytosis of the facets. Central canal and neural foramina are paten t. L4-5: Postoperative changes. Partial obscuration of the neural foramina. No significant stenoses appa rent. L5-S1: Osteophytosis of the facets. Central canal and neural foramina are patent. IMPRESSION : Severe central canal and foraminal stenoses at the L1-2 level, immediately above the multi level surg ical fixation. Prominent but less severe stenoses at the T12-L1 level.
== END 2020-05-20 15:50 | disposition home or self-care (01) ==
LOC: BICRAD 15:49
PROVIDERS: ATTEND Specialist
DX: M48.061 Spinal stenosis, lumbar region without neurogenic claudication (principal); R06.00 Dyspnea, unspecified; M48.05 Spinal stenosis, thoracolumbar region
CPT/HCPCS: 71046; 72148

== ENCOUNTER 2020-06-29 10:04 | Outpatient (CLI) | payer MEDICARE, OTHER ==
--- NOTE | 2020-06-29 11:36 | MRI ---
MRI Cervical spine without contrast: HISTORY: Cervical radiculopathy. Patient complains of neck pain and bilateral hand numbness. History of prior cervical spine surgery. COMPARISON: 05/13/2019 FINDINGS: Postoperative changes cervical spine are again noted with metallic susceptibility artifact seen anter iorly at the C4-5 level related to anterior plate and screws. Intradiscal implants are again seen at the C4-5, C5-6, and C6-7 levels with evidence of fusion from C4 to C7. Findings are unchanged comp ared to prior exam. No significant cord signal abnormality. Paravertebral soft tissues have a normal appearance and normal signal intensity. C1-2:Degenerative changes are again present at this level with prominent pannus formation at the venecia culation of the odontoid with anterior arch of C1 which results in effacement of the ventral subarachnoid space. Findings are unchanged from prior exam. C2-3: Right-sided uncinate process hypertrophy and prominent right facet hypertrophic changes. Left n eural foramen and central spinal canal are patent, but there is mild right-sided neural foraminal narrowing. C3-4: Mild disc osteophyte complex with prominent right-sided uncinate process hypertrophy. Facet hyp ertrophic changes are present and greater on the right. There is mild effacement of the right anterolateral aspect of the ventral subarachnoid space. Left neural foramen is patent, but there is m oderate to severe right-sided neural foraminal narrowing. This is similar to prior exam. C4-5: Posterior osteophyte formation as well as facet hypertrophic changes are noted. Facet hypertrop hic changes much greater on the right. Findings result in effacement of the ventral subarachnoid space with slight flattening the anterior aspect of the spinal cord. Moderate left sided neural princess inal narrowing is present. Right foramen is patent. C5-6: Posterior osteophyte formation is present resulting in slight effacement of the ventral subarac hnoid space. Mild left-sided neural foraminal narrowing is present. Right neural foramen is patent. C6-7: Posterior osteophyte formation is present resulting in effacement of the ventral subarachnoid s pace. Mild facet hypertrophic changes are present. Mild bilateral neural foraminal narrowing is seen greater on the left. C7-T1: Trace anterolisthesis of C7 on T1. Disc osteophyte complex is again seen with facet degenerati ve changes with findings greater on the left. Findings again result in moderate to severe left and mild right-sided neural foraminal narrowing. Mild central canal narrowing is present. IMPRESSION: Postoperative and degenerative changes of the cervical spine not significantly progressed when compar ed to prior exam.
--- NOTE | 2020-06-29 11:50 | RAD ---
Cervical spine 5 views: 06/29/2020 COMPARISON: None HISTORY: Cervical radiculopathy, neck pain with bilateral hand numbness, prior cervical spine fusion FINDINGS: Open-mouth odontoid view demonstrates a normal-appearing dens and C1-2 articulation. There is anterior discectomy and fusion hardware present at C4-5. Intervertebral disc devices are present at C5-6 and C6-7. The neutral lateral imaging demonstrates multilevel mid and upper cervical spine facet hypertrophy. A t the C7-T1 level there is anterolisthesis measuring up to approximately 4 mm. On the flexion imaging the anterolisthesis at the C7-T1 level measures approximately 5 mm. This anter olisthesis on extension imaging measures approximately 4 mm. No additional areas of anterolisthesis or retrolisthesis are appreciated. No prevertebral soft tissue swelling. IMPRESSION: Postoperative and degenerative change within the cervical spine as detailed above.
== END 2020-06-29 10:05 | disposition home or self-care (01) ==
LOC: SCSMRI 10:04
PROVIDERS: ATTEND Neurological Surgery
DX: M47.22 Other spondylosis with radiculopathy, cervical region (principal); Z98.890 Other specified postprocedural states
CPT/HCPCS: 72050; 72141

== ENCOUNTER 2020-08-12 09:54 | Outpatient (CLI) | payer MEDICARE, OTHER ==
[2020-08-12 11:19] LABS: Mean Corpuscular HGB CONC 31.2 g/dL (32.0-36.0); Mean Corpuscular Hemoglobin 29.6 pg (27.0-33.0); Mean Corpuscular Volume 94.9 fl (81.6-98.3); Mean Platelet Volume 8.8 fl (7.4-10.4); Platelet Count 314 10x3/uL (150-450); RBC Distribution Width 12.9 % (11.5-14.5); Red Blood Cell (RBC) Count 3.72 10x6/uL (3.90-5.03); White Blood Cell (WBC) Count 9.1 10x3/uL (3.5-10.5)
[2020-08-12 11:36] LABS: Anion Gap 9 mmol/L (10-20); BUN (Urea Nitrogen) 23 mg/dL (9.8-20.1); Calc. Creatinine Clearance 0 mL/min (70-130); Calcium 8.8 mg/dL (7.8-10.44); Carbon Dioxide 29 mmol/L (23-31); Chloride 105 mmol/L (98-107); Glucose 123 mg/dL (83-110); Sodium 138 mmol/L (136-145)
[2020-08-12 17:45] LABS: SARS-CoV-2 PCR by NAA Not Detected (NotDetected)
== END 2020-08-12 09:55 | disposition home or self-care (01) ==
LOC: LABBT 09:54
PROVIDERS: ATTEND Neurological Surgery
DX: Z01.818 Encounter for other preprocedural examination (principal); M48.062 Spinal stenosis, lumbar region with neurogenic claudication; Z20.822 Contact with and (suspected) exposure to COVID-19
CPT/HCPCS: 80048; 85027; 93005; U0003; U0005; 87635; 93010

== ENCOUNTER 2020-08-16 08:34 | Observation (INO) | payer MEDICARE, OTHER ==
[2020-08-16] MEDS ORDERED: Midazolam HCl 2 mg/2 ml Vial ONE (11:28)
[2020-08-16] MEDS ORDERED: Fentanyl 100 MCG/2 ML VIAL ONE ×2 (11:28→15:31)
[2020-08-16] MEDS ORDERED: PHENYLEPHRINE-NS 100 MCG/ML 10 ML SYRINGE ONE (11:57)
[2020-08-16] MEDS ORDERED: Lidocaine 1% PF 5 ML VIAL ONE (11:57)
[2020-08-16] MEDS ORDERED: Rocuronium Bromide 10 MG/ML (10ML VIAL) ONE (11:57)
[2020-08-16] MEDS ORDERED: ePHEDrine Sulfate 50 MG/10 ML VIAL ONE (11:57)
[2020-08-16] MEDS ORDERED: Ondansetron PF 4 MG/2 ML Vial ONE (11:57)
[2020-08-16] MEDS ORDERED: PROPOFOL 200 MG/20 ML VIAL ONE (11:57)
[2020-08-16] MEDS ORDERED: Glycopyrrolate 0.2 MG/ML 5 ML SYRINGE ONE (11:57)
[2020-08-16] MEDS ORDERED: Dexamethasone 20 MG/5 ML VIAL ONE (11:57)
[2020-08-16] MEDS ORDERED: Ondansetron HCl/PF 4 MG/2 ML Vial IVP PRN (12:47)
[2020-08-16] MEDS ORDERED: Promethazine HCl 25 MG/ML VIAL SLOW IVP PRN (12:47)
[2020-08-16] MEDS ORDERED: HYDROmorphone 2 MG/ML VIAL SLOW IVP PRN (12:47)
[2020-08-16] MEDS ORDERED: HYDROmorphone 2 MG/ML VIAL ONE (13:36)
[2020-08-16] MEDS ORDERED: diphenhydrAMINE 50 MG/ML VIAL IVP PRN (14:15)
[2020-08-16] MEDS ORDERED: Mag-Al 1200 mg/1200 mg/30 ML UDCUP PO PRN (14:15)
[2020-08-16] MEDS ORDERED: Milk Of Magnesia 30 ML UDCUP PO PRN (14:15)
[2020-08-16] MEDS ORDERED: Morphine 4 MG/ML VIAL SLOW IVP PRN (14:15)
[2020-08-16] MEDS ORDERED: HYDROcodone/Acetaminophen 10/325 mg Tablet PO PRN ×2 (14:15)
[2020-08-16] MEDS ORDERED: diphenhydrAMINE 25 MG CAP PO PRN (14:15)
[2020-08-16] MEDS ORDERED: tiZANidine HCl 4 MG TAB PO PRN (14:15)
[2020-08-16] MEDS ORDERED: Morphine 2 MG/ML VIAL SLOW IVP PRN (14:15)
[2020-08-16] MEDS ORDERED: Ondansetron PF 4 MG/2 ML Vial IM PRN (14:16)
[2020-08-16] MEDS ORDERED: Nitroglycerin 0.4 MG TAB (25 Tab Bottle) SL PRN (14:41)
[2020-08-16] MEDS: CEFAZOLIN 2 GM in Premix Bag 1 BAG IVPB SCH (17:33)
[2020-08-16] MEDS ORDERED: Ondansetron PF 4 MG/2 ML Vial SLOW IVP PRN (18:54)
[2020-08-16 20:48] VITALS: BMI 31.6
[2020-08-16] MEDS ORDERED: Calcium Carbonate 600 MG + Vit D TAB PO SCH (21:00)
[2020-08-16] MEDS ORDERED: Gabapentin 400 MG CAP PO SCH (21:00)
[2020-08-16] MEDS ORDERED: Rosuvastatin 5 MG TAB PO SCH (21:00)
[2020-08-16] MEDS ORDERED: Ezetimibe 10 MG TAB PO SCH (21:00)
[2020-08-16] MEDS ORDERED: rOPINIRole HCl 2 MG TAB PO SCH (21:00)
[2020-08-16] MEDS: Ursodiol 300 MG CAP PO SCH (21:10)
[2020-08-16] MEDS: Famotidine 20 MG TAB PO SCH (21:14)
[2020-08-16] MEDS: BELBUCA 150 MCG SL SCH (22:06)
[2020-08-16] MEDS: Sodium Chloride 0.9% 1,000 ML IV SCH (23:16)
[2020-08-17] MEDS: CEFAZOLIN 2 GM in Premix Bag 1 BAG IVPB SCH ×2 (01:45→10:34)
[2020-08-17] MEDS ORDERED: Levothyroxine Sodium 100 MCG TAB PO SCH (06:00)
[2020-08-17] MEDS: Sodium Chloride 0.9% 1,000 ML IV SCH (06:49)
[2020-08-17 07:42] VITALS: BP 116/60; TEMP 98.3
[2020-08-17] MEDS ORDERED: Spironolactone 25 MG TAB PO SCH (08:00)
[2020-08-17] MEDS: Famotidine 20 MG TAB PO SCH (08:31)
[2020-08-17] MEDS ORDERED: Torsemide 10 MG TAB PO SCH (09:00)
[2020-08-17] MEDS ORDERED: Gabapentin 300 MG CAP PO SCH (09:00)
[2020-08-17] MEDS: BELBUCA 150 MCG SL SCH (10:22)
[2020-08-17] MEDS: Ursodiol 300 MG CAP PO SCH (10:23)
== END 2020-08-17 11:00 | disposition home or self-care (01) ==
LOC: SDC 08:34 → SURG B 14:18
PROVIDERS: ADMIT Neurological Surgery; ATTEND Neurological Surgery
PROC: 01N80ZZ Release Thoracic Nerve, Open Approach (ICD-10-PCS; principal; 2020-08-16)
DX: M48.04 Spinal stenosis, thoracic region (principal); M48.05 Spinal stenosis, thoracolumbar region; M48.062 Spinal stenosis, lumbar region with neurogenic claudication; M54.16 Radiculopathy, lumbar region; G89.29 Other chronic pain; I25.10 Atherosclerotic heart disease of native coronary artery without angina pectoris; E78.5 Hyperlipidemia, unspecified; K21.9 Gastro-esophageal reflux disease without esophagitis; M19.90 Unspecified osteoarthritis, unspecified site; E03.9 Hypothyroidism, unspecified; Z79.02 Long term (current) use of antithrombotics/antiplatelets; Z79.82 Long term (current) use of aspirin; Z79.899 Other long term (current) drug therapy; Z88.5 Allergy status to narcotic agent; Z88.8 Allergy status to other drugs, medicaments and biological substances; Z95.5 Presence of coronary angioplasty implant and graft; Z98.1 Arthrodesis status
CPT/HCPCS: 63046; 63048; 76000; 96365; 96376; 97139; G0378 ×2; J0690; J1100; J1170; J2250; J2405; J2704; J3010; J3370; J3490

== ENCOUNTER 2020-12-10 14:20 | Outpatient (CLI) | payer MEDICARE, OTHER ==
[2020-12-10 16:12] LABS: Anion Gap 13 mmol/L (10-20); BUN (Urea Nitrogen) 35 mg/dL (9.8-20.1); Calc. Creatinine Clearance 0 mL/min (70-130); Calcium 9.1 mg/dL (7.8-10.44); Carbon Dioxide 26 mmol/L (23-31); Chloride 106 mmol/L (98-107); Glucose 119 mg/dL (83-110); Potassium 5.7 mmol/L (3.5-5.1); Sodium 139 mmol/L (136-145)
[2020-12-10 16:28] LABS: Hemoglobin 9.3 g/dL (12.0-15.5); Mean Corpuscular HGB CONC 30.5 g/dL (32.0-36.0); Mean Corpuscular Hemoglobin 27.1 pg (27.0-33.0); Mean Corpuscular Volume 88.9 fl (81.6-98.3); Mean Platelet Volume 8.8 fl (7.4-10.4); Platelet Count 377 10x3/uL (150-450); RBC Distribution Width 13.9 % (11.5-14.5); Red Blood Cell (RBC) Count 3.43 10x6/uL (3.90-5.03); White Blood Cell (WBC) Count 7.6 10x3/uL (3.5-10.5)
[2020-12-11 19:32] LABS: SARS-CoV-2 PCR by NAA Not Detected (NotDetected)
== END 2020-12-10 14:21 | disposition home or self-care (01) ==
LOC: LABBT 14:20
PROVIDERS: ATTEND Orthopaedic Surgery
DX: Z01.812 Encounter for preprocedural laboratory examination (principal); Z20.822 Contact with and (suspected) exposure to COVID-19
CPT/HCPCS: 80048; 85027; U0003; U0005

== ENCOUNTER 2020-12-13 10:41 | Day surgery (SDC) | payer MEDICARE, OTHER ==
[2020-12-10 13:27] VITALS: BMI 29.2
[2020-12-13] MEDS ORDERED: Fentanyl 100 MCG/2 ML VIAL ONE ×3 (11:28→14:49)
[2020-12-13] MEDS ORDERED: Midazolam HCl 2 mg/2 ml Vial ONE (11:28)
[2020-12-13 12:25] LABS: Potassium 4.8 mmol/L (3.5-5.1)
[2020-12-13] MEDS ORDERED: Dexamethasone 20 MG/5 ML VIAL ONE (12:51)
[2020-12-13] MEDS ORDERED: Ondansetron PF 4 MG/2 ML Vial ONE (12:51)
[2020-12-13] MEDS ORDERED: Lidocaine 1% PF 5 ML VIAL ONE (12:51)
[2020-12-13] MEDS ORDERED: Bupivacaine HCl 0.5%/Epinephrine 1:200,000/PF 30 ml Vial ONE (12:51)
[2020-12-13] MEDS ORDERED: PHENYLEPHRINE-NS 100 MCG/ML 10 ML SYRINGE ONE (12:51)
[2020-12-13] MEDS ORDERED: Succinylcholine 200 MG/10 ml SYRINGE FS ONE (12:51)
[2020-12-13] MEDS ORDERED: PROPOFOL 200 MG/20 ML VIAL ONE (12:51)
[2020-12-13] MEDS ORDERED: Morphine 2 MG/ML VIAL ONE (15:39)
[2020-12-13] MEDS ORDERED: HYDROcodone/Acetaminophen 5/325 mg Tablet ONE (15:39)
== END 2020-12-13 16:55 | disposition home or self-care (01) ==
LOC: SDC 10:41
PROVIDERS: ATTEND Orthopaedic Surgery
PROC: 0QPD04Z Removal of Internal Fixation Device from Right Patella, Open Approach (ICD-10-PCS; principal; 2020-12-13)
PROC: 0LQQ0ZZ Repair Right Knee Tendon, Open Approach (ICD-10-PCS; 2020-12-13)
DX: M67.863 Other specified disorders of tendon, right knee (principal); T84.84XA Pain due to internal orthopedic prosthetic devices, implants and grafts, initial encounter; K21.9 Gastro-esophageal reflux disease without esophagitis; M19.90 Unspecified osteoarthritis, unspecified site; M54.16 Radiculopathy, lumbar region; I25.10 Atherosclerotic heart disease of native coronary artery without angina pectoris; E78.5 Hyperlipidemia, unspecified; E03.9 Hypothyroidism, unspecified; Z79.82 Long term (current) use of aspirin; Z79.899 Other long term (current) drug therapy; Z88.8 Allergy status to other drugs, medicaments and biological substances; Z95.5 Presence of coronary angioplasty implant and graft; Z98.1 Arthrodesis status
CPT/HCPCS: 20680; 27380; 73560; 76000; 84132; J2270; J0690; J1100; J2250; J2405; J2704; J3010; L1830

== ENCOUNTER 2020-12-15 09:18 | Inpatient (IN) | payer MEDICARE, OTHER ==
[2020-12-15 11:49] LABS: #Basophils 0.1 thou/uL (0.0-0.2); #Eosinphils 0.6 thou/uL (0.0-0.7); #Lymphocytes 3.1 thou/uL (1.20-3.40); #Monocytes 1.1 thou/uL (0.11-0.59); #Neutrophils 6.1 thou/uL (1.40-6.50); %Basophils 0.9 % (0.0-1.0); %Eosinophils 5.2 % (0.0-10.0); %Lymphocytes 28.2 % (21.0-51.0); %Neutrophils 55.8 % (42.0-75.0); Hemoglobin 9.5 g/dL (12.0-16.0); Mean Corpuscular HGB CONC 31.7 g/dL (32.0-36.0); Mean Corpuscular Hemoglobin 27.9 pg (27.0-31.0); Mean Platelet Volume 6.3 fL (7.4-10.4); Platelet Count 372 thou/uL (130-400); RBC Distribution Width 12.6 % (11.5-14.5); Red Blood Cell (RBC) Count 3.42 mill/uL (4.20-5.40); White Blood Cell (WBC) Count 10.9 thou/uL (4.8-10.8)
[2020-12-15] MEDS ORDERED: Morphine 4 MG/ML VIAL ONE (11:57)
[2020-12-15 12:01] LABS: PTT 29.8 sec (22.9-36.1); Prothrombin Time 13.4 sec (12.0-14.7)
[2020-12-15 12:12] LABS: ALT (SGPT) 17 U/L (8-55); AST (SGOT) 19 U/L (5-34); Albumin 3.8 g/dL (3.4-4.8); Alkaline Phosphatase 92 U/L (40-110); Anion Gap 10 mmol/L (10-20); BUN (Urea Nitrogen) 20 mg/dL (9.8-20.1); Bilirubin, Total 0.5 mg/dL (0.2-1.2); Calc. Creatinine Clearance 0 mL/min (70-130); Calcium 9.3 mg/dL (7.8-10.44); Carbon Dioxide 27 mmol/L (23-31); Chloride 102 mmol/L (98-107); Globulin 3.2 g/dL (2.4-3.5); Glucose 79 mg/dL (83-110); Potassium 4.2 mmol/L (3.5-5.1); Sodium 135 mmol/L (136-145)
[2020-12-15] MEDS ORDERED: Nitroglycerin 0.4 MG TAB (25 Tab Bottle) SL PRN (12:46)
[2020-12-15] MEDS ORDERED: Ondansetron ODT 4 MG TAB PO PRN (12:52)
[2020-12-15] MEDS ORDERED: Torsemide 10 MG TAB PO SCH (13:00)
[2020-12-15] MEDS ORDERED: Spironolactone 25 MG TAB PO SCH (13:00)
[2020-12-15] MEDS ORDERED: Acetaminophen 500 MG TAB PO SCH (13:00)
[2020-12-15 13:33] LABS: Hemoglobin 10.3 g/dL (12.0-16.0); Mean Corpuscular HGB CONC 32.8 g/dL (32.0-36.0); Mean Corpuscular Hemoglobin 29.1 pg (27.0-31.0); Mean Corpuscular Volume 88.8 fL (78.0-98.0); Mean Platelet Volume 6.3 fL (7.4-10.4); Platelet Count 358 thou/uL (130-400); RBC Distribution Width 12.8 % (11.5-14.5); Red Blood Cell (RBC) Count 3.54 mill/uL (4.20-5.40); White Blood Cell (WBC) Count 10.4 thou/uL (4.8-10.8)
[2020-12-15 13:48] LABS: MDiff Complete? YES
[2020-12-15 13:49] LABS: Band 1 % (5-11); Eosinophils 4 % (0-10); Lymphocytes 34 % (21-51); Monocytes 3 % (0-10); Neutrophil 56 % (42-75); Platelet Morphology Comment Appears Adequate; Polychromasia SLIGHT = 2-3 cells (100X) (0-2/hpf)
[2020-12-15 16:30] LABS: SARS-CoV-2 NAA Rapid Test Not Detected (NotDetected)
[2020-12-15 17:09] VITALS: BMI 31.1
[2020-12-15] MEDS: Morphine 2 MG/ML VIAL SLOW IVP PRN ×2 (18:04→21:54)
[2020-12-15] MEDS: Gabapentin 100 MG CAP PO SCH ×2 (18:12→20:45)
[2020-12-15] MEDS ORDERED: Budesonide/Glycopyr/Formoterol [Breztri Aerosphere Inhaler] INH SCH (18:30)
[2020-12-15] MEDS: Calcium Carbonate 600 MG + Vit D TAB PO SCH (20:45)
[2020-12-15] MEDS: Carvedilol 3.125 MG TAB PO SCH (20:45)
[2020-12-16] MEDS: Levothyroxine Sodium 100 MCG TAB PO SCH (05:08)
[2020-12-16 06:22] LABS: Eosinophils 7 % (0-10); Hemoglobin 9.6 g/dL (12.0-16.0); Hypochromia SLIGHT = 6-15 cells (100X) (0-5/hpf); Lymphocytes 24 % (21-51); MDiff Complete? YES; Mean Corpuscular HGB CONC 32.2 g/dL (32.0-36.0); Mean Corpuscular Hemoglobin 27.9 pg (27.0-31.0); Mean Corpuscular Volume 86.7 fL (78.0-98.0); Mean Platelet Volume 6.4 fL (7.4-10.4); Monocytes 12 % (0-10); Neutrophil 55 % (42-75); Platelet Count 339 thou/uL (130-400); Platelet Morphology Comment Appears Adequate; RBC Distribution Width 12.7 % (11.5-14.5); Reactive Lymphocytes 2 % (0-10); Red Blood Cell (RBC) Count 3.43 mill/uL (4.20-5.40); White Blood Cell (WBC) Count 8.4 thou/uL (4.8-10.8)
[2020-12-16] MEDS: Morphine 2 MG/ML VIAL SLOW IVP PRN ×3 (06:25→19:56)
[2020-12-16 06:36] LABS: Anion Gap 10 mmol/L (10-20); BUN (Urea Nitrogen) 18 mg/dL (9.8-20.1); Calc. Creatinine Clearance 57 mL/min (70-130); Carbon Dioxide 29 mmol/L (23-31); Chloride 100 mmol/L (98-107); Glucose 90 mg/dL (83-110); Magnesium 1.8 mg/dL (1.6-2.6); Phosphorus 3.1 mg/dL (2.3-4.7); Potassium 4.2 mmol/L (3.5-5.1); Sodium 135 mmol/L (136-145)
[2020-12-16] MEDS ORDERED: Magnesium Sulfate 2 GM in Sodium Chloride 0.9% 100 ML IV SCH (07:45)
[2020-12-16] MEDS ORDERED: Spironolactone 25 MG TAB PO SCH (08:00)
[2020-12-16] MEDS ORDERED: Magnesium 2 GM/50 ML 2 GM in Premix Bag 1 BAG IVPB SCH (08:00)
[2020-12-16] MEDS: Gabapentin 100 MG CAP PO SCH ×2 (08:34→15:15)
[2020-12-16] MEDS: Carvedilol 3.125 MG TAB PO SCH ×2 (08:34→20:01)
[2020-12-16] MEDS: Rosuvastatin 5 MG TAB PO SCH (08:34)
[2020-12-16] MEDS ORDERED: Fentanyl 100 MCG/2 ML VIAL ONE ×2 (10:46→14:09)
[2020-12-16] MEDS ORDERED: EPINEPHrine 1 MG/ML AMP ONE (11:02)
[2020-12-16] MEDS ORDERED: Bupivacaine 0.25% HCL 30 ML VIAL ONE (11:02)
[2020-12-16] MEDS: Ferrous Sulfate 325 MG TAB PO SCH ×2 (11:17→18:29)
[2020-12-16] MEDS: Ascorbic Acid 500 mg Chewable Tablet PO SCH ×2 (11:17→20:01)
[2020-12-16] MEDS: Torsemide 10 MG TAB PO SCH (11:18)
[2020-12-16] MEDS ORDERED: HYDROmorphone 2 MG/ML VIAL SLOW IVP PRN (11:53)
[2020-12-16] MEDS ORDERED: Ondansetron HCl/PF 4 MG/2 ML Vial IVP PRN ×2 (11:53→14:08)
[2020-12-16] MEDS ORDERED: CEFAZOLIN 2 GM in Premix Bag 1 BAG IVPB SCH (12:15)
[2020-12-16] MEDS ORDERED: Dexmedetomidine 200 MCG/2 ML VIAL ONE (12:19)
[2020-12-16] MEDS ORDERED: Lidocaine 1% PF 5 ML VIAL ONE (12:25)
[2020-12-16] MEDS ORDERED: PROPOFOL 200 MG/20 ML VIAL ONE (12:25)
[2020-12-16] MEDS ORDERED: Ondansetron PF 4 MG/2 ML Vial ONE (12:25)
[2020-12-16] MEDS ORDERED: PACU-Morphine 4MG/ML VIAL SLOW IVP PRN (14:08)
[2020-12-16] MEDS ORDERED: Cyclobenzaprine 10 MG TAB PO PRN (19:11)
[2020-12-16] MEDS ORDERED: traMADol HCl 50 MG TAB PO PRN (19:11)
[2020-12-16] MEDS: Gabapentin 300 MG CAP PO SCH (20:00)
[2020-12-16] MEDS: Calcium Carbonate 600 MG + Vit D TAB PO SCH (20:01)
[2020-12-16] MEDS: traMADol HCl 50 MG TAB PO SCH (23:37)
[2020-12-17] MEDS: Levothyroxine Sodium 100 MCG TAB PO SCH (05:24)
[2020-12-17] MEDS: traMADol HCl 50 MG TAB PO SCH ×3 (05:24→17:20)
[2020-12-17] MEDS: Ferrous Sulfate 325 MG TAB PO SCH ×2 (08:47→20:44)
[2020-12-17] MEDS: Torsemide 10 MG TAB PO SCH (08:47)
[2020-12-17] MEDS: Rosuvastatin 5 MG TAB PO SCH (08:47)
[2020-12-17] MEDS: CeleCOXIB 100 MG CAP PO SCH (08:47)
[2020-12-17] MEDS: Ascorbic Acid 500 mg Chewable Tablet PO SCH ×2 (08:48→20:44)
[2020-12-17] MEDS: Gabapentin 300 MG CAP PO SCH ×3 (08:48→20:42)
[2020-12-17] MEDS: Carvedilol 3.125 MG TAB PO SCH ×2 (08:48→20:44)
[2020-12-17] MEDS: Spironolactone 25 MG TAB PO SCH (08:48)
[2020-12-17] MEDS: Enoxaparin Sodium 40 MG/0.4 ML SYRINGE SC SCH (10:18)
[2020-12-17] MEDS: Morphine 2 MG/ML VIAL SLOW IVP PRN (18:15)
[2020-12-17] MEDS: Calcium Carbonate 600 MG + Vit D TAB PO SCH (20:43)
[2020-12-17] MEDS: rOPINIRole HCl 2 MG TAB PO SCH (20:44)
[2020-12-17] MEDS: Ezetimibe 10 MG TAB PO SCH (20:44)
[2020-12-17] MEDS: CEFAZOLIN 2 GM in Premix Bag 1 BAG IVPB SCH (20:49)
[2020-12-18] MEDS: traMADol HCl 50 MG TAB PO SCH ×4 (00:18→17:05)
[2020-12-18] MEDS: Levothyroxine Sodium 100 MCG TAB PO SCH (04:56)
[2020-12-18] MEDS: CEFAZOLIN 2 GM in Premix Bag 1 BAG IVPB SCH (04:57)
[2020-12-18] MEDS: Spironolactone 25 MG TAB PO SCH (07:32)
[2020-12-18] MEDS: Morphine 2 MG/ML VIAL SLOW IVP PRN (07:32)
[2020-12-18] MEDS ORDERED: Morphine 2 MG/ML VIAL SLOW IVP SCH (08:30)
[2020-12-18] MEDS: CeleCOXIB 100 MG CAP PO SCH (09:29)
[2020-12-18] MEDS: Torsemide 10 MG TAB PO SCH (09:29)
[2020-12-18] MEDS: Rosuvastatin 5 MG TAB PO SCH (09:29)
[2020-12-18] MEDS: Ferrous Sulfate 325 MG TAB PO SCH ×2 (09:30→20:23)
[2020-12-18] MEDS: Gabapentin 300 MG CAP PO SCH ×3 (09:30→20:21)
[2020-12-18] MEDS: Ascorbic Acid 500 mg Chewable Tablet PO SCH ×2 (09:30→20:23)
[2020-12-18] MEDS: Enoxaparin Sodium 40 MG/0.4 ML SYRINGE SC SCH (09:31)
[2020-12-18] MEDS: Carvedilol 3.125 MG TAB PO SCH ×2 (09:31→20:23)
[2020-12-18] MEDS: Senokot S 8.6-50 MG TAB PO SCH (17:05)
[2020-12-18] MEDS: Ezetimibe 10 MG TAB PO SCH (20:21)
[2020-12-18] MEDS: rOPINIRole HCl 2 MG TAB PO SCH (20:22)
[2020-12-18] MEDS: Calcium Carbonate 600 MG + Vit D TAB PO SCH (20:22)
[2020-12-18] MEDS: Ursodiol 300 MG CAP PO SCH (20:23)
[2020-12-19] MEDS: traMADol HCl 50 MG TAB PO SCH ×6 (01:19→17:43)
[2020-12-19] MEDS: Levothyroxine Sodium 100 MCG TAB PO SCH (05:16)
[2020-12-19] MEDS: Ferrous Sulfate 325 MG TAB PO SCH ×2 (07:39→20:52)
[2020-12-19] MEDS: Enoxaparin Sodium 40 MG/0.4 ML SYRINGE SC SCH (07:39)
[2020-12-19] MEDS: CeleCOXIB 100 MG CAP PO SCH (07:40)
[2020-12-19] MEDS: Rosuvastatin 5 MG TAB PO SCH (07:40)
[2020-12-19] MEDS: Ascorbic Acid 500 mg Chewable Tablet PO SCH ×2 (07:40→20:55)
[2020-12-19] MEDS: Carvedilol 3.125 MG TAB PO SCH ×2 (07:40→21:05)
[2020-12-19] MEDS: Spironolactone 25 MG TAB PO SCH (07:41)
[2020-12-19] MEDS: Gabapentin 300 MG CAP PO SCH ×3 (07:41→20:55)
[2020-12-19] MEDS: Torsemide 10 MG TAB PO SCH (07:42)
[2020-12-19] MEDS: Senokot S 8.6-50 MG TAB PO SCH ×2 (08:47→20:56)
[2020-12-19] MEDS: Polyethylene Glycol 3350 17 GM Packet PO SCH (08:47)
[2020-12-19 08:56] LABS: Hemoglobin 8.5 g/dL (12.0-16.0)
[2020-12-19] MEDS: Calcium Carbonate 600 MG + Vit D TAB PO SCH (20:53)
[2020-12-19] MEDS: Ezetimibe 10 MG TAB PO SCH (20:54)
[2020-12-19] MEDS: rOPINIRole HCl 2 MG TAB PO SCH (20:55)
[2020-12-19] MEDS: Ursodiol 300 MG CAP PO SCH (21:06)
[2020-12-20] MEDS: traMADol HCl 50 MG TAB PO SCH ×3 (02:12→11:19)
[2020-12-20] MEDS: Levothyroxine Sodium 100 MCG TAB PO SCH (05:08)
[2020-12-20] MEDS: Polyethylene Glycol 3350 17 GM Packet PO SCH (08:50)
[2020-12-20] MEDS: CeleCOXIB 100 MG CAP PO SCH (08:51)
[2020-12-20] MEDS: Rosuvastatin 5 MG TAB PO SCH (08:51)
[2020-12-20] MEDS: Enoxaparin Sodium 40 MG/0.4 ML SYRINGE SC SCH (08:51)
[2020-12-20] MEDS: Senokot S 8.6-50 MG TAB PO SCH (08:51)
[2020-12-20] MEDS: Carvedilol 3.125 MG TAB PO SCH (08:52)
[2020-12-20] MEDS: Spironolactone 25 MG TAB PO SCH (08:52)
[2020-12-20] MEDS: Gabapentin 300 MG CAP PO SCH (08:53)
[2020-12-20] MEDS: Ascorbic Acid 500 mg Chewable Tablet PO SCH (08:53)
[2020-12-20] MEDS: Ferrous Sulfate 325 MG TAB PO SCH (08:53)
[2020-12-20] MEDS: Torsemide 10 MG TAB PO SCH (09:20)
[2020-12-20 15:04] VITALS: BP 101/64; TEMP 98.6
== END 2020-12-20 17:00 | disposition home health service (06) | DRG 908 ==
LOC: ERS 09:18 → ERHOLD 11:50 → SJJU 15:45
PROVIDERS: ADMIT Surgery; ATTEND Surgery
PROC: 0LQQ0ZZ Repair Right Knee Tendon, Open Approach (ICD-10-PCS; principal; 2020-12-16)
DX: T81.32XA Disruption of internal operation (surgical) wound, not elsewhere classified, initial encounter (principal); S52.531A Colles' fracture of right radius, initial encounter for closed fracture; S82.001A Unspecified fracture of right patella, initial encounter for closed fracture; I25.10 Atherosclerotic heart disease of native coronary artery without angina pectoris; W19.XXXA Unspecified fall, initial encounter; I50.9 Heart failure, unspecified; G89.29 Other chronic pain; Z95.5 Presence of coronary angioplasty implant and graft; Z90.49 Acquired absence of other specified parts of digestive tract; I25.2 Old myocardial infarction; Z90.710 Acquired absence of both cervix and uterus; Z98.1 Arthrodesis status; Y92.009 Unspecified place in unspecified non-institutional (private) residence as the place of occurrence of the external cause
CPT/HCPCS: 0240U; 25600; 36415; 71045; 76000; 80048; 80053; 83735; 83880; 84100; 84132; 85007; 85014; 85018; 85025; 85027; 85610; 85730; 86850; 86900; 86901; 93005; 93306; 96374; C1713; J0171; J0690; J1100; J1650; J2250; J2270; J2405; J2704; J3010; J3475; L1830; S0020

== ENCOUNTER 2022-05-08 13:47 | Emergency (ER) | payer MEDICARE, OTHER | END 2022-05-08 16:32 | disposition home or self-care (01) | LOC: ERS 13:47 | DX: M25.562 Pain in left knee (principal); M54.32 Sciatica, left side; I11.0 Hypertensive heart disease with heart failure; I50.9 Heart failure, unspecified; M79.605 Pain in left leg ==

== ENCOUNTER 2022-05-16 11:12 | Outpatient (CLI) | payer MEDICARE, OTHER | END 2022-05-16 11:13 | disposition home or self-care (01) | LOC: TBSIIMAG 11:12 | PROVIDERS: ATTEND Specialist | DX: M47.26 Other spondylosis with radiculopathy, lumbar region (principal); M54.50 Low back pain, unspecified; M84.48XA Pathological fracture, other site, initial encounter for fracture; G95.19 Other vascular myelopathies; Z98.890 Other specified postprocedural states | CPT/HCPCS: 72148 ==

== ENCOUNTER 2022-07-20 11:04 | Outpatient (CLI) | payer MEDICARE, OTHER | END 2022-07-20 11:05 | disposition home or self-care (01) | LOC: TBSIIMAG 11:04 | PROVIDERS: ATTEND Anesthesiology Pain Medicine | DX: M47.22 Other spondylosis with radiculopathy, cervical region (principal); Z98.890 Other specified postprocedural states | CPT/HCPCS: 72141 ==

== ENCOUNTER 2022-12-14 10:00 | Outpatient (CLI) | payer MEDICARE, OTHER | END 2022-12-14 10:01 | disposition home or self-care (01) | LOC: RAD 10:00 | PROVIDERS: ATTEND Specialist | DX: M25.532 Pain in left wrist (principal); M13.832 Other specified arthritis, left wrist ==

== ENCOUNTER 2023-04-05 10:07 | Outpatient (CLI) | payer MEDICARE, OTHER | END 2023-04-05 10:08 | disposition home or self-care (01) | LOC: BICRAD 10:07 | PROVIDERS: ATTEND Nurse Practitioner Family | DX: M25.552 Pain in left hip (principal); M16.12 Unilateral primary osteoarthritis, left hip ==

== ENCOUNTER 2023-04-20 08:57 | Outpatient (CLI) | payer MEDICARE, OTHER ==
[2023-04-20] MEDS ORDERED: Magnevist 469MG/ML 20 ML VIAL ONE (11:44)
== END 2023-04-20 08:58 | disposition home or self-care (01) ==
LOC: MRI 08:57
PROVIDERS: ATTEND Nurse Practitioner Family
DX: M48.062 Spinal stenosis, lumbar region with neurogenic claudication (principal); M47.26 Other spondylosis with radiculopathy, lumbar region; M47.817 Spondylosis without myelopathy or radiculopathy, lumbosacral region; M47.815 Spondylosis without myelopathy or radiculopathy, thoracolumbar region; Z98.890 Other specified postprocedural states
CPT/HCPCS: 72158; 82565; A9579

== ENCOUNTER 2023-12-28 15:43 | Outpatient (CLI) | payer MEDICARE, OTHER | END 2023-12-28 15:44 | disposition home or self-care (01) | LOC: BICRAD 15:43 | PROVIDERS: ATTEND Specialist | DX: M25.551 Pain in right hip (principal); M16.11 Unilateral primary osteoarthritis, right hip ==

== ENCOUNTER 2024-02-12 10:06 | Outpatient (CLI) | payer MEDICARE, OTHER | END 2024-02-12 10:07 | disposition home or self-care (01) | LOC: BICRAD 10:06 | PROVIDERS: ATTEND Specialist | DX: R06.00 Dyspnea, unspecified (principal); J98.11 Atelectasis | CPT/HCPCS: 71046 ==